=== PATIENT | male | born 1955 | race Caucasian/White ===

== ENCOUNTER 2017-03-07 11:01 | Observation (INO) ==
--- NOTE | 2017-03-07 11:25 | Emergency Department Note ---
Disposition Clinical Impression: Duodenitis, Gastric distention Abdominal pain Qualifiers: Abdominal location: generalized Qualified Code(s): R10.84 - Generalized abdominal pain Disposition: Admitted As Inpatient Condition: Fair Referrals: Anamika Gtz CNP [Primary Care Provider] - Forms: ED Satisfaction Letter Time of Disposition: 13:15 Nausea/Vomiting/Diarrhea HPI - General Chief complaint: ED Nausea/Vomiting/Diarrhea Stated complaint: vomiting Time Seen by Provider: 03/07/17 11:20 Source: patient, family Limitations: no limitations Nursing Notes Reviewed: Yes Vital Signs Reviewed: Yes - History of Present Illness HPI Narrative: 61-year-old had a couple days of nausea vomiting and abdominal pain. Patient's has had pancreatitis twice in the past and says it feels similar to that. Patient is status post appendectomy and cholecystectomy remotely. Patient's had multiple episodes of vomiting. He states he also has had some burning with urination. Denies any history of diverticular disease. Denies alcohol use. No history of gastroparesis. Pt Subjective Complaint: nausea, vomiting, abdominal pain Onset (ago): day(s) Description of emesis: food contents Associated Abdominal Pain: Yes If pain, Location of pain: diffuse, other (But states more so in the lower abdomen than the upper abdomen) Quality: cramping Consistency: constant Improves with: nothing Worsens with: nonthing Associated symptoms: Reports: dysuria. Denies: chest pain - Related Data Home Medications Medication Instructions Recorded Confirmed Aspirin Enteric Coated [Aspirin EC] 325 mg PO DAILY 05/20/15 12/27/15 Atorvastatin [Lipitor] 40 mg PO DAILY 05/20/15 12/27/15 Citalopram [CeleXA] 40 mg PO DAILY 05/20/15 12/27/15 Cyclobenzaprine [Flexeril] 10 mg PO TID 05/20/15 12/27/15 Gabapentin [Neurontin] 1,200 mg PO TID 05/20/15 12/27/15 Insulin Glargine [Lantus] 80 unit SQ BID 05/20/15 12/27/15 Lisinopril [Zestril] 20 mg PO BID 05/20/15 12/27/15 OxyCODONE/APAP 7.5/325 [Percocet 1 each PO TID 05/20/15 12/27/15 7.5/325 MG] metFORMIN [Glucophage] 1,000 mg PO BID 05/20/15 12/27/15 Meloxicam [Mobic] 15 mg PO DAILY 12/27/15 12/27/15 Metoprolol Succinate 100 mg PO DAILY 12/27/15 12/27/15 Previous Rx's Medication Instructions Recorded Insulin ASPART [NovoLOG] 10 unit SQ TIDWM #1 mls 12/29/15 Insulin Glargine [Lantus] 80 unit SQ BID #1 mls 12/29/15 Allergies Allergy/AdvReac Type Severity Reaction Status Date / Time Enoxaparin [From Lovenox] AdvReac Rash Verified 03/07/17 11:06 All systems ED: reviewed and negative except as stated. Gastrointestinal: Reports: abdominal pain, nausea, vomiting Past Medical History - Past Medical History Medical history: Reports: diabetes Surgical history: Reports: appendectomy, cholecystectomy Psychiatric history: Reports: no psych history - Social History Smoking Status: Never smoker Smokeless Tobacco Status: Yes Alcohol use: Reports: none Drug use: Reports: none Physical Exam - General Limitations: no limitations General appearance: alert, in no apparent distress - Head Head exam: atraumatic, normocephalic, normal inspection - Eye Eye exam: Present: normal appearance, PERRL, EOMI - ENT ENT exam: normal exam, normal oropharynx, mucous membranes moist - Neck Neck exam: Present: normal inspection, full ROM, trachea midline - Chest Chest inspection: Present: normal inspection, symmetric chest wall rise - Respiratory Respiratory exam: Present: normal lung sounds bilaterally - Cardiovascular Cardiovascular exam: Present: regular rate, normal rhythm, normal heart sounds - Abdominal Exam Abdominal exam: Present: soft, tenderness. Absent: guarding, rebound, pulsatile mass Abdominal tenderness: Present: diffuse - Extremities Exam Extremities exam: Present: normal inspection, full ROM. Absent: tenderness, pedal edema - Expanded Lower Extremity Exam Neurovascular/Tendon exam: Absent: motor deficit, sensory deficit, tendon deficit Gait: observed and normal - Back Exam Back exam: Present: normal inspection, full ROM. Absent: tenderness - Neurological Exam Neurological exam: Present: alert, oriented X3 - Psychiatric Psychiatric exam: Present: normal affect, normal mood - Skin Skin exam: Present: warm, dry, intact, normal color Course - Reevaluation(s) Reevaluation #1: 61-year-old diabetic who comes in with nausea vomiting and abdominal pain. Has had pancreatitis a couple times in the past and thought it was related to that. Workup shows a normal amylase and lipase however a CT scan does show inflammation around the duodenum likely related to duodenitis. In light of his normal amylase and lipase does not appear to be pancreatitis. Patient was given Zosyn and he does have significant distention of his stomach remnant hadn't put an NG down. Time: 13:14 - Consultations Consultation #1: Discussed with , admit. Time: 13:13 Vital Signs Temperature 97.4 F L 03/07/17 11:06 Pulse Rate 91 03/07/17 11:06 Respiratory Rate 20 03/07/17 11:06 Blood Pressure 158/94 03/07/17 11:06 O2 Sat by Pulse Oximetry 98 03/07/17 11:06 Temperature 97.4 F L 03/07/17 11:06 Pulse Rate 91 03/07/17 11:06 Respiratory Rate 20 03/07/17 11:06 Blood Pressure 158/94 03/07/17 11:06 O2 Sat by Pulse Oximetry 98 03/07/17 11:06 Oxygen Delivery Oxygen Delivery Room Air Nausea/Vomiting/Diarrhea - Lab Data Lab results reviewed: Yes I reviewed the patient's lab results. Result diagrams: 03/07/17 11:45 03/07/17 11:45 Lab Results 03/07/17 03/07/17 03/07/17 Range/Units 11:35 11:45 11:45 WBC 15.8 H (4.3-11.1) K/mcL RBC 5.09 (4.19-5.50) M/mcL Hgb 16.0 (12.9-16.9) g/dL Hct 46.4 (37.5-50.1) % MCV 91.2 (83.0-100.0) fL MCH 31.4 (28.0-33.3) pg MCHC 34.5 (31.6-35.5) g/dL RDW 12.9 (11.5-14.5) % Plt Count 334 (140-400) K/mcL MPV 9.7 (9.4-12.4) fL Immature Gran % 0.6 (0-4) % Seg Neutrophils % 87.9 % Lymphocytes % 7.7 % Monocytes % 3.5 % Eosinophils % 0.0 % Basophils % 0.3 % Neutrophils # 13.9 H (1.6-8.9) K/mcL Lymphocytes # 1.2 (0.6-4.6) K/mcL Monocytes # 0.6 (0.0-1.3) K/mcL Eosinophils # 0.0 (0.0-0.6) K/mcL Basophils # 0.1 (0.0-0.2) K/mcL Immature Plt Fraction 3.0 (1.1-6.1) % Sodium (136-145) mEq/L Potassium (3.5-4.5) mEq/L Chloride (98-109) mEq/L Carbon Dioxide (19-29) mEq/L BUN (8-26) mg/dL Creatinine (0.72-1.25) mg/dL Est GFR ( Amer) (> 60) Est GFR (Non-Af Amer) (> 60) BUN/Creatinine Ratio (6-26) Glucose (70-99) mg/dL Calculated Osmolality (280-300) Lactic Acid 2.5 H (0.5-2.2) mmol/L Calcium (8.6-10.8) mg/dL Total Bilirubin (0.2-1.2) mg/dL Direct Bilirubin (0.0-0.5) mg/dL Indirect Bilirubin (0.0-1.2) mg/dL AST (5-34) Units/L ALT (0-55) Units/L Alkaline Phosphatase (38-126) Units/L Serum Total Protein (6.0-8.3) g/dL Albumin (3.5-5.0) g/dL Globulin (2.4-3.5) g/dL Albumin/Globulin Ratio (1.1-2.2) Amylase (25-125) Units/L Lipase (8-78) Units/L Urine Color Yellow (Yellow) Urine Clarity Clear (Clear) Urine pH 5.5 (5.0-8.0) pH Units Ur Specific [place] > 1.030 H (1.010-1.025) Urine Protein Negative (Neg-Trace) mg/dL Urine Glucose (UA) >=1000 H (Normal) mg/dL Urine Ketones 40 H (Negative) mg/dL Urine Blood Negative (Negative) Urine Nitrite Negative (Negative) Urine Bilirubin Negative (Negative) Urine Urobilinogen Normal (Normal) mg/dL Ur Leukocyte Esterase Negative (Negative) Ur Culture Indicated? NO (NO) 03/07/17 Range/Units 11:45 WBC (4.3-11.1) K/mcL RBC (4.19-5.50) M/mcL Hgb (12.9-16.9) g/dL Hct (37.5-50.1) % MCV (83.0-100.0) fL MCH (28.0-33.3) pg MCHC (31.6-35.5) g/dL RDW (11.5-14.5) % Plt Count (140-400) K/mcL MPV (9.4-12.4) fL Immature Gran % (0-4) % Seg Neutrophils % % Lymphocytes % % Monocytes % % Eosinophils % % Basophils % % Neutrophils # (1.6-8.9) K/mcL Lymphocytes # (0.6-4.6) K/mcL Monocytes # (0.0-1.3) K/mcL Eosinophils # (0.0-0.6) K/mcL Basophils # (0.0-0.2) K/mcL Immature Plt Fraction (1.1-6.1) % Sodium 139 (136-145) mEq/L Potassium 4.7 H (3.5-4.5) mEq/L Chloride 97 L (98-109) mEq/L Carbon Dioxide 28 (19-29) mEq/L BUN 29 H (8-26) mg/dL Creatinine 1.09 (0.72-1.25) mg/dL Est GFR ( Amer) > 60 (> 60) Est GFR (Non-Af Amer) > 60 (> 60) BUN/Creatinine Ratio 27 H (6-26) Glucose 387 H (70-99) mg/dL Calculated Osmolality 310 H (280-300) Lactic Acid (0.5-2.2) mmol/L Calcium 10.2 (8.6-10.8) mg/dL Total Bilirubin 0.9 (0.2-1.2) mg/dL Direct Bilirubin 0.4 (0.0-0.5) mg/dL Indirect Bilirubin 0.5 (0.0-1.2) mg/dL AST 15 (5-34) Units/L ALT 19 (0-55) Units/L Alkaline Phosphatase 157 H (38-126) Units/L Serum Total Protein 7.9 (6.0-8.3) g/dL Albumin 4.1 (3.5-5.0) g/dL Globulin 3.8 H (2.4-3.5) g/dL Albumin/Globulin Ratio 1.1 (1.1-2.2) Amylase 27 (25-125) Units/L Lipase 30 (8-78) Units/L Urine Color (Yellow) Urine Clarity (Clear) Urine pH (5.0-8.0) pH Units Ur Specific [place] (1.010-1.025) Urine Protein (Neg-Trace) mg/dL Urine Glucose (UA) (Normal) mg/dL Urine Ketones (Negative) mg/dL Urine Blood (Negative) Urine Nitrite (Negative) Urine Bilirubin (Negative) Urine Urobilinogen (Normal) mg/dL Ur Leukocyte Esterase (Negative) Ur Culture Indicated? (NO) - Radiology Data Radiology results reviewed: Yes I reviewed the patient's radiology results. Abdomen/Pelvis CT 03/07/17 11:27 IMPRESSION: Inflammatory changes associated with the duodenum and head of the pancreas findings favored to represent a nonspecific infectious or inflammatory enteritis of the duodenum with associated inflammatory changes of the adjacent pancreas. Pancreatitis with reactive changes at the adjacent duodenum is considered less likely No definite perforation is noted. Study somewhat limited by lack of IV contrast There is significant distention of the stomach with possible delayed gastric emptying. Consider placement of a nasogastric tube for decompression particularly if the patient is at risk for aspiration D/ / Jordan Mayberry MD / Jordan Mayberry MD Interpreting Provider: Jordan Mayberry MD - EKG Data EKG attestation: Yes I reviewed and interpreted this EKG. EKG shows normal: sinus rhythm Rate: normal Rhythm: NSR, PVC's Interpretation: no acute changes
[2017-03-07] MEDS ORDERED: *HR* HYDROmorphone (PF) 1 MG/ML SYRINGE IVP ONE ×2 (11:26→12:59)
[2017-03-07] MEDS ORDERED: 0.9 % Sodium Chloride 1,000 ML IVC ONE (11:26)
[2017-03-07] MEDS ORDERED: Ondansetron 4 MG/2 ML VIAL IVP ONE (11:26)
[2017-03-07 11:49] LABS: Bilirubin,Urine Negative (Negative); Blood,Urine Negative (Negative); Clarity,Urine Clear (Clear); Color,Urine Yellow (Yellow); Glucose,Urine (UA) >=1000 mg/dL (Normal); Ketones,Urine 40 mg/dL (Negative); Leukocyte Esterase,Urine Negative (Negative); Nitrite,Urine Negative (Negative); PH,Urine 5.5 pH Units (5.0-8.0); Protein,Urine Negative (Neg-Trace); Specific Gravity,Urine > 1.030 (1.010-1.025); Urobilinogen,Urine Normal (Normal)
[2017-03-07 11:54] LABS: Basophils # 0.1 K/mcL (0.0-0.2); Basophils % 0.3 %; Hematocrit 46.4 % (37.5-50.1); Immature Granulocytes % 0.6 % (0-4); Lymphocytes # 1.2 K/mcL (0.6-4.6); Lymphocytes % 7.7 %; Mean Corpuscular HGB Conc 34.5 g/dL (31.6-35.5); Mean Corpuscular Hemoglobin 31.4 pg (28.0-33.3); Mean Corpuscular Volume 91.2 fL (83.0-100.0); Mean Platelet Volume 9.7 fL (9.4-12.4); Monocytes # 0.6 K/mcL (0.0-1.3); Monocytes % 3.5 %; Neutrophils # 13.9 K/mcL (1.6-8.9); Platelet Count 334 K/mcL (140-400); Red Blood Count 5.09 M/mcL (4.19-5.50); Red Cell Distribution Width 12.9 % (11.5-14.5); Segmented Neutrophils % 87.9 %
[2017-03-07 12:13] LABS: Alanine Aminotransferase 19 Units/L (0-55); Albumin 4.1 g/dL (3.5-5.0); Albumin/Globulin Ratio 1.1 (1.1-2.2); Alkaline Phosphatase 157 Units/L (38-126); Amylase 27 Units/L (25-125); Aspartate Amino Transferase 15 Units/L (5-34); BUN/Creatinine Ratio 27 (6-26); Bilirubin,Direct 0.4 mg/dL (0.0-0.5); Bilirubin,Indirect 0.5 mg/dL (0.0-1.2); Bilirubin,Total 0.9 mg/dL (0.2-1.2); Blood Urea Nitrogen 29 mg/dL (8-26); Calcium 10.2 mg/dL (8.6-10.8); Carbon Dioxide 28 mEq/L (19-29); Chloride 97 mEq/L (98-109); Globulin 3.8 g/dL (2.4-3.5); Glucose 387 mg/dL (70-99); Lipase 30 Units/L (8-78); Osmolality,Calculated 310 (280-300); Potassium 4.7 mEq/L (3.5-4.5); Sodium 139 mEq/L (136-145); Total Protein 7.9 g/dL (6.0-8.3); eGFR For African Americans > 60 (> 60); eGFR For Non-African Americans > 60 (> 60)
[2017-03-07] MEDS ORDERED: *HR* Promethazine 25 MG/ML VIAL IVP ONE (12:59)
[2017-03-07] MEDS ORDERED: Piperacillin/Tazobactam 3.375 GM in D5% in Water (Mini-Bag+) 100 ML IVPB ONE (13:02)
[2017-03-07] MEDS ORDERED: Pantoprazole 40 MG VIAL IVP ONE (13:16)
[2017-03-07] MEDS ORDERED: Naloxone 0.4 MG/ML INJ IVP PRN (15:14)
--- NOTE | 2017-03-07 15:20 | Internal Med History&Physical ---
Date of Encounter: 03/07/17 Time of Encounter: 15:20 Assessment and Plan (1) Abdominal pain Current visit: Yes Status: Acute Acute intractable abdominal pain. Mainly in the epigastric region. From duodenitis and acute gastroparesis. We will treat symptomatically. Keep nothing by mouth. NG tube to low intermittent suction. IV hydration. IV PPI. Pain control with intravenous narcotic agents. High risk for complications due to use of intravenous narcotic medications. DVT prophylaxis with subcutaneous heparin and SCDs Qualifiers: Abdominal location: epigastric Qualified Code(s): R10.13 - Epigastric pain (2) Duodenitis Current visit: Yes Status: Acute Will treat with IV PPI. If symptoms do not improve, will consult GI for possible upper GI endoscopy. (3) Diabetic gastroparesis Current visit: Yes Status: Acute Patient appears to be having an episode of acute gastro-paresis with associated duodenitis. Has not previously been diagnosed with it but patient does have history of diabetic neuropathy. Will treat with prokinetic agents. IV hydration. Treat underlying diabetes. (4) Hypertension Current visit: Yes Status: Chronic Blood pressure currently elevated. Likely from pain. Since patient is nothing by mouth, we will place him on intravenous hydralazine to control systolic blood pressure. Qualifiers: Hypertension type: essential hypertension Qualified Code(s): I10 - Essential (primary) hypertension (5) Obesity (BMI 30-39.9) Current visit: No Status: Chronic (6) Diabetes mellitus Current visit: Yes Status: Chronic Uncontrolled. Monitor blood sugars. A1c in January was 10%. Will place patient on Levemir twice a day and sliding scale insulin every 6 hours. For now patient will be nothing by mouth. 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 Camacho is a 61 year old male patient with a history of essential hypertension, type 2 diabetes mellitus on insulin who presented to the ER with complaints of intractable nausea and vomiting along with epigastric abdominal pain. Patient's symptoms began on 4 days back and have been progressively getting worse. He reports that the pain is 10 out of 10 in severity at its worst. It improved to 7 out of 10 after receiving pain medications in the ER. Has had a bowel movement this morning. Pain is nonradiating. He does have chronic back pain which seems to also worsened since he developed these acute symptoms. No hematemesis. No melena. Patient had similar kind of pain in the past when he developed pancreatitis but his pain was much less severe. No fever or chills. No cough or shortness of breath. Past Med Surg Social Fam HX - Past Medical History Attestation: Yes The following information was validated with the patient. Source: patient, old records reviewed Medical history: diabetes Psychiatric history: no psych history - Past Surgical History Surgical History: appendectomy, cholecystectomy - Social History Smoking Status: Never smoker Smokeless Tobacco Status: Yes Alcohol use: none Drug use: none - Family History Mother Living Status: Hx Family Cardiac Disorders: Yes Hx Family Endocrine Disorder: Yes (DM) Father Living Status: Hx Family Cardiac Disorders: Yes Hx Family Endocrine Disorder: Yes (DM) Internal Medicine - H&P: Meds Aspirin Enteric Coated [Aspirin EC] 325 mg PO DAILY 05/20/15 [History] Atorvastatin [Lipitor] 40 mg PO DAILY 05/20/15 [History] Citalopram [CeleXA] 40 mg PO DAILY 05/20/15 [History] Cyclobenzaprine [Flexeril] 10 mg PO TID 05/20/15 [History] Gabapentin [Neurontin] 1,200 mg PO TID 05/20/15 [History] Insulin Glargine [Lantus] 80 unit SQ BID 05/20/15 [History] Lisinopril [Zestril] 20 mg PO BID 05/20/15 [History] OxyCODONE/APAP 7.5/325 [Percocet 7.5/325 MG] 1 each PO TID 05/20/15 [History] Meloxicam [Mobic] 15 mg PO DAILY 12/27/15 [History] Metoprolol Succinate 100 mg PO DAILY 12/27/15 [History] Insulin ASPART [NovoLOG] 10 unit SQ TIDWM #1 mls 12/29/15 [Rx] Insulin Glargine [Lantus] 80 unit SQ BID #1 mls 12/29/15 [Rx] Insulin NPH Hum/Reg Insulin Hm [Novolin 70-30 100 Unit/ml Vial] 100 unit SQ BID 03/07/17 [History] Insulin Regular, Human [Novolin R] 0 - 35 unit IJ TID PRN 03/07/17 [History] 3 Allergy/AdvReac Type Severity Reaction Status Date / Time Enoxaparin [From Lovenox] AdvReac Rash Verified 03/07/17 15:04 All Systems PM: A 10-system review of systems was performed and is negative for pertinent findings except as documented above in the HPI. - Constitutional Constitutional: malaise, no chills, no fever(s), no night sweats - EENT Eyes: no change in vision, no discharge, no pain, no photophobia Ears: no ear discharge, no ear pain, no tinnitus Nose, mouth and throat: no dysphagia, no nasal discharge, no neck pain, no sore throat - Cardiovascular Cardiovascular ROS IM: no chest pain, no diaphoresis, no dyspnea, no lightheadedness, no palpitations, no syncope - Respiratory Respiratory: no cough, no dyspnea, no wheezing, no excessive phlegm production - Gastrointestinal Gastrointestinal: abdominal pain, nausea, vomiting, no diarrhea, no hematemesis , no hematochezia, no melena - Musculoskeletal Musculoskeletal ROS IM: no numbness, no tingling - Integumentary Integumentary IM: no rash, no unusual bruising - Neurological Neurological ROS: no confusion, no convulsions, no focal weakness, no numbness, no tingling, no tremor(s) - Hematologic/Lymphatic Hematologic/Lymphatic: no easy bruising - Constitutional Vitals: Temp Pulse Resp BP Pulse Ox 97.4 F L 72 17 163/82 100 03/07/17 11:06 03/07/17 14:36 03/07/17 14:36 03/07/17 14:36 03/07/17 14:36 General appearance: Present: cooperative, mild distress, A&O X 3, answers questions appropriately - Eye Eye exam: Present: EOMI, PERRL, conjuntiva pink, sclera anicteric - ENT ENT exam: Present: mucous membranes dry Additional comments: NG tube in place - Neck Neck exam general surgery: Present: supple, trachea midline. Absent: lymphadenopathy - Respiratory Respiratory exam: Present: CTAB. Absent: accessory muscle use, rales, rhonchi, wheezes - Cardiovascular Cardiovascular exam: Present: RRR, +S1, +S2. Absent: diastolic murmur, gallop, rubs, systolic murmur - GI/Abdominal GI/Abdominal exam: Present: distended, normal bowel sounds, soft, tenderness ( Epigastric), no peritoneal signs - Extremities Exam Extremities exam: Present: warm, radial pulses palpable and symmetrical. Absent : calf tenderness, cyanotic, pedal edema - Neurological Exam Neurological exam: Present: alert, oriented X3, no focal deficits, strengths equal and symetr throughout. Absent: facial droop, speech deficit - Skin Skin exam: Present: dry, intact Internal Med - H&P Results - Labs CBC & Chem 7: 03/07/17 11:45 03/07/17 11:45 - Impressions Impressions Abdomen/Pelvis CT 03/07/17 11:27 IMPRESSION: Inflammatory changes associated with the duodenum and head of the pancreas. Findings favored to represent a nonspecific infectious or inflammatory enteritis of the duodenum with associated inflammatory changes of the adjacent pancreas. Pancreatitis with reactive changes at the adjacent duodenum is considered less likely. No definite perforation is noted. Study is somewhat limited by the lack of IV contrast. There is significant distention of the stomach with possible delayed gastric emptying. Consider placement of a nasogastric tube for decompression particularly if the patient is at risk for aspiration. D/ / 03/07/2017 13:23:23 Jordan Mayberry MD / guillermina Interpreting Provider: Jordan Mayberry MD
[2017-03-07] MEDS ORDERED: Metoclopramide 10 MG/2 ML VIAL IVP PRN (15:21)
[2017-03-07] MEDS ORDERED: *HR* Dextrose 50 % in Water (Syg) 50 ML SYRINGE IVP PRN (15:22)
[2017-03-07] MEDS ORDERED: D5% in Water 1,000 ML IVC PRN (15:22)
[2017-03-07] MEDS ORDERED: Dextrose Gel 15 GM PO PRN ×2 (15:22)
[2017-03-07] MEDS ORDERED: Lidocaine Viscous Oral Soln 15 ML SOLUTION MM PRN (15:40)
[2017-03-07] MEDS: *HR* Heparin 5,000 UNIT/ML VIAL SQ SCH (16:44)
[2017-03-07] MEDS: 0.9 % Sodium Chloride 1,000 ML IVC SCH (16:44)
[2017-03-07] MEDS: *HR* Metoprolol 5 MG/5 ML VIAL IVP SCH ×2 (16:44→23:20)
[2017-03-07] MEDS: *HR* Morphine 2 MG/ML SYRINGE IVP PRN ×2 (17:52→21:56)
[2017-03-07] MEDS ORDERED: *HR* Metoprolol 5 MG/5 ML VIAL IVP SCH (18:00)
[2017-03-07] MEDS: Insulin LISPRO 300 UNITS/3 ML VIAL SQ SCH ×2 (18:05→23:20)
[2017-03-07] MEDS ORDERED: Ondansetron 4 MG/2 ML VIAL IVP PRN (20:32)
[2017-03-07] MEDS: Lisinopril 20 MG TABLET PO SCH (20:47)
[2017-03-07] MEDS: Gabapentin 400 MG CAPSULE PO SCH (20:47)
[2017-03-07] MEDS: *HR* OxyCODONE/APAP 7.5/325 TABLET PO SCH (20:47)
[2017-03-07] MEDS: Insulin DETEMIR 100 UNIT/ML X5UNITS SQ SCH (21:56)
[2017-03-08] MEDS: *HR* Morphine 2 MG/ML SYRINGE IVP PRN ×2 (03:09→09:23)
[2017-03-08] MEDS: 0.9 % Sodium Chloride 1,000 ML IVC SCH (03:09)
[2017-03-08 04:33] LABS: Basophils # 0.1 K/mcL (0.0-0.2); Basophils % 0.3 %; Hematocrit 42.3 % (37.5-50.1); Hemoglobin 14.6 g/dL (12.9-16.9); Immature Granulocytes % 0.6 % (0-4); Lymphocytes # 1.9 K/mcL (0.6-4.6); Lymphocytes % 11.5 %; Mean Corpuscular HGB Conc 34.5 g/dL (31.6-35.5); Mean Corpuscular Hemoglobin 31.5 pg (28.0-33.3); Mean Corpuscular Volume 91.2 fL (83.0-100.0); Mean Platelet Volume 9.8 fL (9.4-12.4); Monocytes # 1.4 K/mcL (0.0-1.3); Monocytes % 8.6 %; Platelet Count 306 K/mcL (140-400); Red Blood Count 4.64 M/mcL (4.19-5.50); Red Cell Distribution Width 13.1 % (11.5-14.5)
[2017-03-08 04:47] LABS: BUN/Creatinine Ratio 30 (6-26); Blood Urea Nitrogen 28 mg/dL (8-26); Calcium 9.7 mg/dL (8.6-10.8); Carbon Dioxide 29 mEq/L (19-29); Chloride 101 mEq/L (98-109); Glucose 264 mg/dL (70-99); Osmolality,Calculated 305 (280-300); Potassium 4.1 mEq/L (3.5-4.5); Sodium 140 mEq/L (136-145); eGFR For African Americans > 60 (> 60); eGFR For Non-African Americans > 60 (> 60)
[2017-03-08] MEDS: Insulin LISPRO 300 UNITS/3 ML VIAL SQ SCH ×2 (05:32→12:10)
[2017-03-08] MEDS: *HR* Metoprolol 5 MG/5 ML VIAL IVP SCH ×2 (05:32→12:12)
[2017-03-08] MEDS: *HR* Heparin 5,000 UNIT/ML VIAL SQ SCH (05:32)
[2017-03-08] MEDS: Insulin DETEMIR 100 UNIT/ML X5UNITS SQ SCH (08:48)
[2017-03-08] MEDS ORDERED: Metoprolol XL (24 HR) Succ 50 MG TAB.ER.24H PO SCH (09:00)
[2017-03-08] MEDS ORDERED: Pantoprazole 40 MG VIAL IVP SCH (09:00)
[2017-03-08] MEDS: *HR* OxyCODONE/APAP 7.5/325 TABLET PO SCH ×2 (09:25→15:09)
[2017-03-08] MEDS: Gabapentin 400 MG CAPSULE PO SCH ×2 (09:42→15:09)
[2017-03-08] MEDS: Lisinopril 20 MG TABLET PO SCH (09:42)
[2017-03-08 11:06] VITALS: BP 154/70
--- NOTE | 2017-03-08 14:44 | Electrocardiograph Report ---
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
--- NOTE | 2017-03-08 15:01 | Discharge Summary ---
Date of Encounter: 03/08/17 Time of Encounter: 14:55 - Discharge Diagnosis (1) Abdominal pain Priority: Primary Status: Acute Qualifiers: Abdominal location: epigastric Qualified Code(s): R10.13 - Epigastric pain (2) Duodenitis Priority: Secondary Status: Acute (3) Diabetic gastroparesis Priority: Secondary Status: Acute (4) Hypertension Priority: Secondary Status: Chronic Qualifiers: Hypertension type: essential hypertension Qualified Code(s): I10 - Essential (primary) hypertension (5) Obesity (BMI 30-39.9) Priority: Secondary Status: Chronic (6) Diabetes mellitus Priority: Secondary Status: Chronic Qualifiers: Diabetes mellitus type: type 2 Diabetes mellitus complication status: with neurologic complications Diabetes mellitus complication detail: with polyneuropathy Diabetes mellitus clinical rehabilitation liaison insulin use: with snf use Qualified Code(s): E11.42 - Type 2 diabetes mellitus with diabetic polyneuropathy; Z79.4 - skilled nursing (current) use of insulin; Z79.4 - skilled nursing ( current) use of insulin; 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 Omeprazole 20 mg PO DAILY #30 tablet. Home Medications: Atorvastatin [Lipitor] 40 mg PO DAILY 05/20/15 [History] Citalopram [CeleXA] 40 mg PO DAILY 05/20/15 [History] Cyclobenzaprine [Flexeril] 10 mg PO TID 05/20/15 [History] Gabapentin [Neurontin] 1,200 mg PO TID 05/20/15 [History] Insulin Glargine [Lantus] 80 unit SQ BID 05/20/15 [History] Lisinopril [Zestril] 20 mg PO BID 05/20/15 [History] OxyCODONE/APAP 7.5/325 [Percocet 7.5/325 MG] 1 each PO TID 05/20/15 [History] Metoprolol Succinate 100 mg PO DAILY 12/27/15 [History] Insulin ASPART [NovoLOG] 10 unit SQ TIDWM #1 mls 12/29/15 [Rx] Insulin Glargine [Lantus] 80 unit SQ BID #1 mls 12/29/15 [Rx] Insulin NPH Hum/Reg Insulin Hm [Novolin 70-30 100 Unit/ml Vial] 100 unit SQ BID 03/07/17 [History] Insulin Regular, Human [Novolin R] 0 - 35 unit IJ TID PRN 03/07/17 [History] Aspirin Enteric Coated [Aspirin EC] 81 mg PO DAILY #30 tablet. 03/08/17 [Rx] Metoclopramide [Reglan] 10 mg PO Q6HR PRN #30 tablet 03/08/17 [Rx] Omeprazole 20 mg PO DAILY #30 tablet. 03/08/17 [Rx] Allergies/Adverse Reactions: 3 Allergy/AdvReac Type Severity Reaction Status Date / Time Enoxaparin [From Lovenox] AdvReac Rash Verified 03/07/17 15:04 Date of admission: 03/07/17 13:22 Primary care physician: Anamika Gtz CNP Discharging clinician: Arin May Anticipated date of discharge: 03/08/17 - Patient Status Disposition: Home, Self-Care Condition: Good Functional capacity at discharge: independent ambulation Overall status at discharge: patient is progressing back to baseline - Discharge Instructions Instructions: Diabetes Mellitus Type 2 in Adults (DC) Follow Up With: Anamika Gtz CNP [Primary Care Provider] - (in 1 week) Caitie Plata CNP [Advanced Practice Nurse] - 03/15/17 1:45 pm - Diet and Activity Activity: increase activity as tolerated Diet: diabetic diet, low fat, low cholesterol, low salt diet, other (smal and frequent meals) Hospital course: Mr. Camacho is a 61 year old male patient with a history of diabetes mellitus type 2 presented to the ER with complaints of nausea and abdominal pain. CT scan done in the ER showed gastric distention and duodenitis. Patient underwent placement of NG tube and was then observed in the hospital for further management. Patient is very likely having an episode of acute diabetic gastroparesis. NG tube was connected to low intermittent suction and patient was treated with Reglan for nausea. His symptoms have since improved. He is no longer having abdominal distention and feels much better now. He is tolerating oral diet well. NG tube has now been discontinued. He is stable to be discharged home. He will be discharged on omeprazole and Reglan. - Time Spent with Patient Total time spent providing and/or coordinating discharge services: Greater than 30 minutes (35 min) - Constitutional Vitals: Temp Pulse Resp BP Pulse Ox 98.1 F 79 16 154/70 94 03/08/17 10:58 03/08/17 10:58 03/08/17 10:58 03/08/17 10:58 03/08/17 10:58 General appearance: Present: cooperative, A&O X 3, no acute distress, answers questions appropriately - Respiratory Respiratory exam: Present: CTAB. Absent: accessory muscle use, rales, rhonchi, wheezes - Cardiovascular Cardiovascular exam: Present: RRR, +S1, +S2. Absent: diastolic murmur, gallop, rubs, systolic murmur - GI/Abdominal GI/Abdominal exam: Present: normal bowel sounds, soft, no peritoneal signs. Absent: distended, tenderness - Extremities Exam Extremities exam: Present: warm, radial pulses palpable and symmetrical. Absent : calf tenderness, cyanotic, pedal edema - Neurological Exam Neurological exam: Present: alert, CN II-XII intact, oriented X3, no focal deficits. Absent: facial droop, speech deficit
== END 2017-03-08 15:43 | disposition home or self-care (01) ==
LOC: EMEROO 11:01 → 3ANU 11:01 → SUATTDRO 13:22 → 3ANU 13:35
PROVIDERS: ADMIT Internal Medicine; ATTEND Internal Medicine

== ENCOUNTER 2017-10-22 09:41 | Observation (INO) ==
[2017-10-22] MEDS: Nitroglycerin 0.4 MG TAB.SUBL SL ONE ×3 (10:01→10:11)
[2017-10-22] MEDS ORDERED: Aspirin 325 MG TABLET PO ONE (10:25)
--- NOTE | 2017-10-22 10:30 | Emergency Department Note ---
Disposition Clinical Impression: ACS (acute coronary syndrome) Disposition: Admitted As Inpatient General Adult HPI - General Chief complaint: ED Chest Pain Stated complaint: chest pain Time Seen by Provider: 10/22/17 09:46 Source: patient, family Limitations: no limitations - History of Present Illness HPI Narrative: 62M with PMHx HTN, dyslipidemia on statin, no previous [place] or CAD, 2x TIA, presents for chest pain of 1 week, worsening since yesterday. Chest pain is substernal and radiates towards left armpit, pressure-like in nature. CP started last week without any obvious inciting factors. However, it has worsened and become more constant since yesterday after he went to visit his brother across the street in regards to business. CP has not subsided since then and he decided to come to ED. He has never had this before. Patient takes 81mg ASA and Oxycodone 10mg BID for chronic pain. He reports that the oxycodone improved pain last night but CP returned this morning. Has not taken anything today for pain. Reports rest also improves pain, exertion makes it worse. + worsening fatigue, lightheadedness, diaphoresis, nausea. Also reports dizziness with changes in standing/sitting position. Denies SOB, cough, hemoptysis, abdominal pain, f/c/vomiting, diarrhea, recent illness, recent travel. Family history of 03/30 siblings with CAD and [place]. Heart score 5+, EKG NSR, 62M, TIA/HTN/dyslipidemia/family history/chronic smoker (8+ years). Pt Subjective Complaint: chest pain Pain Scale: 4 - Related Data Home Medications Medication Instructions Recorded Confirmed Atorvastatin [Lipitor] 40 mg PO DAILY 05/20/15 10/22/17 Citalopram [CeleXA] 40 mg PO DAILY 05/20/15 10/22/17 Cyclobenzaprine [Flexeril] 10 mg PO TID 05/20/15 10/22/17 Gabapentin [Neurontin] 1,200 mg PO TID 05/20/15 10/22/17 Lisinopril [Zestril] 20 mg PO BID 05/20/15 10/22/17 Insulin NPH Hum/Reg Insulin Hm 100 unit SQ BID 03/07/17 10/22/17 [Novolin 70-30 100 Unit/ml Vial] Insulin Regular, Human [Novolin R] 0 - 35 unit IJ TID PRN 10/22/17 06/08/18 Metoprolol Succinate [Toprol Xl] 100 mg PO DAILY 10/22/17 10/22/17 Oxycodone HCl/Acetaminophen 1 tab PO Q4H PRN 10/22/17 10/22/17 [Percocet 10-325 mg Tablet] Previous Rx's Medication Instructions Recorded Aspirin Enteric Coated [Aspirin EC] 81 mg PO DAILY #30 tablet. 03/08/17 Metoclopramide [Reglan] 10 mg PO Q6HR PRN #30 tablet 03/08/17 Allergies Allergy/AdvReac Type Severity Reaction Status Date / Time Enoxaparin [From Lovenox] AdvReac Rash Verified 03/07/17 15:04 Review of Systems: As Per HPI Past Medical History - Past Medical History Medical history: Reports: cancer, diabetes, hyperlipidemia, hypertension, TIA Surgical history: Reports: appendectomy, cholecystectomy Psychiatric history: Reports: anxiety - Social History Smoking Status: Never smoker Smokeless Tobacco Status: Yes Alcohol use: Reports: none Drug use: Reports: none Physical Exam - General Limitations: no limitations General appearance: alert, in no apparent distress - Head Head exam: atraumatic, normocephalic, normal inspection - Eye Eye exam: Present: normal appearance, EOMI - Expanded Eye Exam Pupils: Left: reactive - ENT ENT exam: normal exam, normal oropharynx, mucous membranes moist - Expanded ENT Exam External ear exam: Present: normal external inspection Mouth exam: Present: normal external inspection Teeth exam: Present: normal inspection Throat exam: Present: normal inspection - Neck Neck exam: Present: normal inspection, full ROM, trachea midline - Chest Chest inspection: Present: normal inspection, symmetric chest wall rise. Absent : rash - Respiratory Respiratory exam: Present: normal lung sounds bilaterally - Cardiovascular Cardiovascular exam: Present: regular rate, normal rhythm, normal heart sounds, +S1, +S2 - Abdominal Exam Abdominal exam: Present: soft, Non-Tender. Absent: tenderness, distention, guarding, rebound, rigidity - Extremities Exam Extremities exam: Present: normal inspection, full ROM. Absent: tenderness, pedal edema - Expanded Upper Extremity Exam Shoulder exam: Present: normal inspection, full ROM Arm exam: Present: normal inspection, full ROM Elbow exam: Present: normal inspection, full ROM Forearm/Wrist exam: Present: normal inspection, full ROM Hand exam: Present: normal inspection, full ROM Vascular exam: Normal: capillary refill, radial pulse - Expanded Lower Extremity Exam Hip/Pelvis exam: Present: normal inspection, full ROM Upper leg exam: Present: normal inspection, full ROM Knee exam: Present: normal inspection, full ROM Lower leg exam: Present: full ROM, swelling. Absent: Homans' sign Ankle exam: Present: normal inspection, full ROM Foot/toe exam: Present: normal inspection, full ROM Neurovascular/Tendon exam: Absent: motor deficit, sensory deficit, tendon deficit - Back Exam Back exam: Present: normal inspection, full ROM. Absent: tenderness - Neurological Exam Neurological exam: Present: alert, oriented X3 - Expanded Neurological Exam Patient oriented to: Present: person, place, time Coma Scale Eye Opening: Spontaneous Coma Scale Motor Response: Obeys Commands Coma Scale Verbal Response: Oriented Coma Scale Total: 15 - Psychiatric Psychiatric exam: Present: normal affect, normal mood - Skin Skin exam: Present: warm, dry, intact, normal color, diaphoresis Course Course Narrative: Patient with typical chest pain with heart score 5+. Give ASA 325mg, nitroglycerin. Pending troponin, CXR, CBC, BMP, troponin Will admit for chest pain r/o ACS. Patient also has worsening dizziness, near-syncope when he went to get his CXR. Will check D-dimer. - Reevaluation(s) Reevaluation #1: Patient continues to have worsening headache. Could be due to Nitroglycerin and/ or orthostatic hypotension. Patient's headache improves with rest. CXR No acute cardiopulmonary disease. Time: 11:00 Reevaluation #2: Troponin negative x 1. D-dimer normal. Pending hospitalist admission for CP r/o ACS. Vital Signs Temperature 98.9 F 10/22/17 09:46 Pulse Rate 87 10/22/17 09:46 Respiratory Rate 18 10/22/17 09:46 Blood Pressure 131/83 10/22/17 09:46 O2 Sat by Pulse Oximetry 93 10/22/17 09:46 Temperature 98.9 F 10/22/17 09:46 Pulse Rate 87 10/22/17 09:46 Respiratory Rate 18 10/22/17 09:46 Blood Pressure 127/82 10/22/17 10:44 O2 Sat by Pulse Oximetry 94 10/22/17 10:39 Oxygen Delivery Oxygen Delivery Room Air Medical Decision Making - Lab Data Result diagrams: 10/22/17 09:55 10/22/17 09:55 Lab Results 10/22/17 10/22/17 10/22/17 Range/Units 09:55 09:55 09:55 WBC 7.9 (4.3-11.1) K/mcL RBC 4.97 (4.19-5.50) M/mcL Hgb 16.0 (12.9-16.9) g/dL Hct 44.3 (37.5-50.1) % MCV 89.1 (83.0-100.0) fL MCH 32.2 (28.0-33.3) pg MCHC 36.1 H (31.6-35.5) g/dL RDW 13.2 (11.5-14.5) % Plt Count 268 (140-400) K/mcL MPV 10.1 (9.4-12.4) fL Immature Gran % 0.8 (0-4) % Seg Neutrophils % 54.2 % Lymphocytes % 33.0 % Monocytes % 7.1 % Eosinophils % 3.1 % Basophils % 1.8 % Neutrophils # 4.3 (1.6-8.9) K/mcL Lymphocytes # 2.6 (0.6-4.6) K/mcL Monocytes # 0.6 (0.0-1.3) K/mcL Eosinophils # 0.2 (0.0-0.6) K/mcL Basophils # 0.1 (0.0-0.2) K/mcL D-Dimer 400 (0-500) ng/mLFEU Sodium 136 (136-145) mEq/L Potassium 4.6 (3.5-5.1) mEq/L Chloride 100 (98-107) mEq/L Carbon Dioxide 26 (23-29) mEq/L BUN 21 (8-23) mg/dL Creatinine 1.00 (0.70-1.30) mg/dL Est GFR ( Amer) > 60 (> 60) Est GFR (Non-Af Amer) > 60 (> 60) BUN/Creatinine Ratio 21 (6-26) Glucose 390 H (70-105) mg/dL Calculated Osmolality 301 H (280-300) Calcium 9.6 (8.6-10.3) mg/dL Troponin I < 0.03 (< 0.04) ng/mL - Radiology Data No acute cardiopulmonary disease on CXR - EKG Data EKG #1 EKG shows normal: sinus rhythm Rate: normal Rhythm: NSR, PVC's [place]/QRS: normal EKG #2 EKG results narrative: Patient has worsening diaphoresis. Troponin negative x1. Repeat EKG negative. EKG shows normal: sinus rhythm Rate: normal Rhythm: NSR
[2017-10-22 10:41] LABS: Basophils # 0.1 K/mcL (0.0-0.2); Basophils % 1.8 %; Eosinophils # 0.2 K/mcL (0.0-0.6); Eosinophils % 3.1 %; Hematocrit 44.3 % (37.5-50.1); Immature Granulocytes % 0.8 % (0-4); Lymphocytes # 2.6 K/mcL (0.6-4.6); Mean Corpuscular HGB Conc 36.1 g/dL (31.6-35.5); Mean Corpuscular Hemoglobin 32.2 pg (28.0-33.3); Mean Corpuscular Volume 89.1 fL (83.0-100.0); Mean Platelet Volume 10.1 fL (9.4-12.4); Monocytes # 0.6 K/mcL (0.0-1.3); Monocytes % 7.1 %; Neutrophils # 4.3 K/mcL (1.6-8.9); Platelet Count 268 K/mcL (140-400); Red Blood Count 4.97 M/mcL (4.19-5.50); Red Cell Distribution Width 13.2 % (11.5-14.5); Segmented Neutrophils % 54.2 %
--- NOTE | 2017-10-22 10:47 | Emergency Department Note ---
Disposition Clinical Impression: ACS (acute coronary syndrome) Disposition: Admitted As Inpatient Referrals: Anamika Gtz CNP [Primary Care Provider] - Forms: ED Satisfaction Letter General Adult HPI - General Chief complaint: ED Chest Pain Stated complaint: chest pain Time Seen by Provider: 10/22/17 09:46 Source: patient, family Limitations: no limitations - History of Present Illness Pain Scale: 4 - Related Data Home Medications Medication Instructions Recorded Confirmed Atorvastatin [Lipitor] 40 mg PO DAILY 05/20/15 03/07/17 Citalopram [CeleXA] 40 mg PO DAILY 05/20/15 03/07/17 Cyclobenzaprine [Flexeril] 10 mg PO TID 05/20/15 03/07/17 Gabapentin [Neurontin] 1,200 mg PO TID 05/20/15 03/07/17 Insulin Glargine [Lantus] 80 unit SQ BID 05/20/15 12/27/15 Lisinopril [Zestril] 20 mg PO BID 05/20/15 03/07/17 OxyCODONE/APAP 7.5/325 [Percocet 1 each PO TID 05/20/15 03/07/17 7.5/325 MG] Metoprolol Succinate 100 mg PO DAILY 12/27/15 03/07/17 Insulin NPH Hum/Reg Insulin Hm 100 unit SQ BID 03/07/17 03/07/17 [Novolin 70-30 100 Unit/ml Vial] Insulin Regular, Human [Novolin R] 0 - 35 unit IJ TID PRN 03/07/17 03/07/17 Previous Rx's Medication Instructions Recorded Insulin ASPART [NovoLOG] 10 unit SQ TIDWM #1 mls 12/29/15 Insulin Glargine [Lantus] 80 unit SQ BID #1 mls 12/29/15 Aspirin Enteric Coated [Aspirin EC] 81 mg PO DAILY #30 tablet. 03/08/17 Metoclopramide [Reglan] 10 mg PO Q6HR PRN #30 tablet 03/08/17 Omeprazole 20 mg PO DAILY #30 tablet. 03/08/17 Allergies Allergy/AdvReac Type Severity Reaction Status Date / Time Enoxaparin [From Lovenox] AdvReac Rash Verified 03/07/17 15:04 Past Medical History - Past Medical History Medical history: Reports: cancer, diabetes, hyperlipidemia, hypertension, TIA Surgical history: Reports: appendectomy, cholecystectomy Psychiatric history: Reports: anxiety - Social History Smoking Status: Never smoker Smokeless Tobacco Status: Yes Alcohol use: Reports: none Drug use: Reports: none Physical Exam - General Limitations: no limitations General appearance: alert, in no apparent distress Course - Reevaluation(s) Reevaluation #1: Attestation note I did independently examine and verified the physical examination findings evaluation workup and disposition of this patient. We had independent face-to- face examination and discussion. The patient was seen with the emergency medicine resident Dr. Dereje White I examined this patient and my medical decision-making was reviewed with the Resident Physician/DIRECTOR ENERGY/PA. I agree with the documented findings, disposition and treatment plan as described except to the extent set forth below. Briefly: 62-year-old male multiple risk factors, heart score 5 moderate risk patient will be admitted. No known prior coronary artery disease stress test 8 years ago which was negative. Over the past week chest pain and pressure are came and went constant since yesterday with extreme fatigue radiation to left arm and neck and some mild shortness of breath. Patient has trace pedal edema EKG shows a PVC but no acute ischemic changes when compared to a prior EKG. Patient will be getting aspirin nitroglycerin getting an oxycodone since he is on that chronically and missed his a.m. dose patient will be admitted, working differential is acute coronary syndrome. Providing 40 minutes critical care service for this patient. Admission disposition pending. Of note patient does have "dizziness" which the patient feels he might pass out after he stood up to get his chest x-ray. Patient will get a d-dimer. Time: 10:34 Vital Signs Temperature 98.9 F 10/22/17 09:46 Pulse Rate 87 10/22/17 09:46 Respiratory Rate 18 10/22/17 09:46 Blood Pressure 131/83 10/22/17 09:46 O2 Sat by Pulse Oximetry 93 10/22/17 09:46 Temperature 98.9 F 10/22/17 09:46 Pulse Rate 87 10/22/17 09:46 Respiratory Rate 18 10/22/17 09:46 Blood Pressure 131/83 10/22/17 09:46 O2 Sat by Pulse Oximetry 93 10/22/17 09:46 Oxygen Delivery Oxygen Delivery Room Air
[2017-10-22] MEDS ORDERED: *HR* OxyCODONE Immed Rel 5 MG TABLET PO ONE (10:49)
[2017-10-22 11:06] LABS: Troponin I < 0.03 ng/mL (< 0.04)
[2017-10-22 11:09] LABS: BUN/Creatinine Ratio 21 (6-26); Blood Urea Nitrogen 21 mg/dL (8-23); Calcium 9.6 mg/dL (8.6-10.3); Carbon Dioxide 26 mEq/L (23-29); Chloride 100 mEq/L (98-107); Glucose 390 mg/dL (70-105); Osmolality,Calculated 301 (280-300); Potassium 4.6 mEq/L (3.5-5.1); Sodium 136 mEq/L (136-145); eGFR For African Americans > 60 (> 60); eGFR For Non-African Americans > 60 (> 60)
[2017-10-22] MEDS ORDERED: Ondansetron 4 MG/2 ML VIAL IVP PRN (12:00)
[2017-10-22] MEDS ORDERED: Naloxone 0.4 MG/ML INJ IVP PRN (12:00)
[2017-10-22] MEDS ORDERED: *HR* Promethazine 25 MG/ML VIAL IVP PRN (12:00)
[2017-10-22] MEDS ORDERED: Acetaminophen 325 MG TABLET PO PRN (12:00)
[2017-10-22] MEDS ORDERED: *HR* Dextrose 50 % in Water (Syg) 50 ML SYRINGE IVP PRN (12:04)
[2017-10-22] MEDS ORDERED: D5% in Water 1,000 ML IVC PRN (12:04)
[2017-10-22] MEDS ORDERED: Dextrose Gel 15 GM/37.5 ML TUBE PO PRN ×2 (12:04)
[2017-10-22] MEDS ORDERED: Nitroglycerin 0.4 MG TAB.SUBL SL PRN (12:05)
--- NOTE | 2017-10-22 13:32 | Internal Med History&Physical ---
Date of Encounter: 10/22/17 Time of Encounter: 11:45 Internal Medicine - H&P: HPI Chief complaint: Chest pain Admitted From: Emergency Dept Plans for Post Hospital Care: Home History of present illness: Mr. Camacho is a 62 year old male with a known past medical history of hypertension, hyperlipidemia, TIA X2, diabetes type II and depression patient who presented to emergency room complaining about left chest wall pain since yesterday. Patient did mention that has been having chest pain since yesterday located at left chest wall, radiating to his left shoulder, feel more like someone sitting on a chest, also featuring lightheadedness, lethargic and weak. His chest pain improved now he felt only 2 out of 10 in severity. He denied of any cardiac cath in the past however he had normal stress test done a couple of years ago. Patient did mention has a significant family history of [place] all his siblings had heart attack in their early age in 50s. Past Med Surg Social Fam HX - Past Medical History Medical history: cancer, diabetes, hyperlipidemia, hypertension, TIA Additional medical history: see attached records Psychiatric history: anxiety - Past Surgical History Surgical History: appendectomy, cholecystectomy Additional surgical history: Back surgery 4 disc fused together, B/L knee replacements, Right hip replacement, bones fused in right foot, Right rotator cuff surgery, surgery on right forearm to repair muscles and ligaments. - Social History Smoking Status: Never smoker Smokeless Tobacco Status: Yes Alcohol use: none Drug use: none - Family History Mother Living Status: Hx Family Cardiac Disorders: Yes Hx Family Endocrine Disorder: Yes (DM) Father Living Status: Hx Family Cardiac Disorders: Yes Hx Family Endocrine Disorder: Yes (DM) Internal Medicine - H&P: Meds Atorvastatin [Lipitor] 40 mg PO DAILY 05/20/15 [History] Citalopram [CeleXA] 40 mg PO DAILY 05/20/15 [History] Cyclobenzaprine [Flexeril] 10 mg PO TID 05/20/15 [History] Gabapentin [Neurontin] 1,200 mg PO TID 05/20/15 [History] Lisinopril [Zestril] 20 mg PO BID 05/20/15 [History] Insulin NPH Hum/Reg Insulin Hm [Novolin 70-30 100 Unit/ml Vial] 100 unit SQ BID 03/07/17 [History] Insulin Regular, Human [Novolin R] 0 - 35 unit IJ TID PRN 03/07/17 [History] Aspirin Enteric Coated [Aspirin EC] 81 mg PO DAILY #30 tablet. 03/08/17 [Rx] Metoclopramide [Reglan] 10 mg PO Q6HR PRN #30 tablet 03/08/17 [Rx] Metoprolol Succinate [Toprol Xl] 100 mg PO DAILY 10/22/17 [History] Oxycodone HCl/Acetaminophen [Percocet 10-325 mg Tablet] 1 tab PO Q4H PRN [History] 3 Allergy/AdvReac Type Severity Reaction Status Date / Time Enoxaparin [From Lovenox] AdvReac Rash Verified 03/07/17 15:04 All Systems PM: A 10-system review of systems was performed and is negative for pertinent findings except as documented above in the HPI. Review of systems: All the systems are reviewed everything is benign except the systems and symptoms I mentioned in the history of present illness - Constitutional Vitals: Temp Pulse Resp BP Pulse Ox 98.9 F 87 14 140/91 94 10/22/17 09:46 10/22/17 09:46 10/22/17 13:04 10/22/17 13:04 10/22/17 10:39 General appearance: Present: A&O X 3, no acute distress, answers questions appropriately - Head Head exam: Present: atraumatic, normal inspection - Neck Neck exam general surgery: Present: supple - Respiratory Respiratory exam: Present: decreased breath sounds. Absent: rales, respiratory distress, rhonchi, wheezes - Cardiovascular Cardiovascular exam: Present: RRR, +S1, +S2. Absent: tachycardia - GI/Abdominal GI/Abdominal exam: Present: normal bowel sounds, soft. Absent: rebound, rigid, tenderness - Extremities Exam Extremities exam: Absent: calf tenderness, pedal edema, tenderness - Back Exam Back exam: Absent: CVA tenderness (L), CVA tenderness (R) - Neurological Exam Neurological exam: Present: alert, oriented X3 - Psychiatric Psychiatric exam: Present: normal affect, normal mood - Skin Skin exam: Absent: rash Internal Med - H&P Results - Labs CBC & Chem 7: 10/22/17 09:55 10/22/17 09:55 - Assessment and plan (1) Chest pain Current Visit: No Status: Acute Assessment and plan: Will admit the pt into Tele for observation Will place pt on cardiac cath tech check serial troponin so far negative troponin EKG reviewed showed normal sinus rhythm no acute ST, T changes and no acute ischemic changes noticed continue pt on ASA, and Nitro as needed for pain Will check FLP in AM Will get pharmacological stress test in AM since pt is high risk for ACS Qualifiers: Chest pain type: precordial chest pain Qualified Code(s): R07.2 - Precordial pain (2) Diabetes mellitus Current Visit: No Status: Chronic Assessment and plan: Seems to be uncontrolled diabetes type II he does take Mixed insulin at home placed him on insulin sliding scale along with pre-meal insulin we will check hemoglobin A-1 C Qualifiers: Diabetes mellitus type: type 2 Diabetes mellitus senior care insulin use: with senior care use Diabetes mellitus complication status: with neurologic complications Diabetes mellitus complication detail: with polyneuropathy Qualified Code(s): E11.42 - Type 2 diabetes mellitus with diabetic polyneuropathy; Z79.4 - group home (current) use of insulin; Z79.4 - emt intermediate ( current) use of insulin; Z79.4 - group home (current) use of insulin; Z79.4 - group home (current) use of insulin (3) Hyperlipemia Current Visit: No Status: Chronic Assessment and plan: Check FLP in AM on Statin Qualifiers: Hyperlipidemia type: mixed hyperlipidemia Qualified Code(s): E78.2 - Mixed hyperlipidemia (4) Hypertension Current Visit: No Status: Chronic Assessment and plan: Well controlled with home medications resumed all home medications Qualifiers: Hypertension type: essential hypertension Qualified Code(s): I10 - Essential (primary) hypertension (5) Obesity (BMI 30-39.9) Current Visit: No Status: Chronic Assessment and plan: Counseled to lose weight - Time Spent With Patient Total time spent is greater than 50% in coordination of care (as documented) at patient's floor/unit and/or counseling patient:
[2017-10-22] MEDS: Gabapentin 400 MG CAPSULE PO SCH ×2 (14:48→21:39)
[2017-10-22] MEDS: Insulin LISPRO 300 UNITS/3 ML VIAL SQ SCH ×4 (14:48→21:43)
[2017-10-22] MEDS ORDERED: Insulin Regular, Human 100 UNIT/ML SQ SCH (15:00)
[2017-10-22 17:01] LABS: Estimated Average Glucose 258 mg/dl; Hemoglobin A1C 10.6 %
--- NOTE | 2017-10-22 18:06 | Electrocardiograph Report ---
[place] [id number] Test Date: 2017-10-22 Pat Name: Sam Camacho Department: 104 Room: 2N4 Gender: M Principal Accounts Clerk: : 1955 Requested By: Charles Rubio Order Number: [id number] Reading MD: Geoff Austin Measurements Intervals [place] Rate: 90 P: 43 [place]: 192 QRS: -14 QRSD: 123 T: 62 QT: 373 QTc: 421 Interpretive Statements SINUS RHYTHM WITH OCCASIONAL VENTRICULAR PREMATURE COMPLEXES BASELINE ARTIFACT Electronically Signed On 10-22-2017 18:05:10 EDT by Geoff Austin
--- NOTE | 2017-10-22 18:13 | Electrocardiograph Report ---
[place] [id number] Test Date: 2017-10-22 Pat Name: Sam Camacho Department: 104 Room: 2N4 Gender: M Safety Advisor: : 1955 Requested By: Dereje White Order Number: [id number] Reading MD: Geoff Austin Measurements Intervals [place] Rate: 86 P: 47 [place]: 204 QRS: -24 QRSD: 124 T: 62 QT: 365 QTc: 409 Interpretive Statements SINUS RHYTHM Poor R wave progression Electronically Signed On 10-22-2017 18:11:50 EDT by Geoff Austin
[2017-10-22] MEDS: Lisinopril 20 MG TABLET PO SCH (21:39)
[2017-10-22] MEDS: *HR* HYDROcodone/Acet 5/325 mg TABLET PO PRN (21:42)
[2017-10-23] MEDS: *HR* OxyCODONE Immed Rel 5 MG TABLET PO PRN ×2 (00:37→10:45)
[2017-10-23 06:02] LABS: Chol/HDL Ratio 5.3 (0-4.9); Cholesterol 137 mg/dL (< 200); HDL Cholesterol 26 mg/dL (40-59); Triglycerides 498 mg/dL (< 150)
[2017-10-23] MEDS ORDERED: Regadenoson 0.4 MG/5 ML SYRINGE IVP ONE (06:16)
--- NOTE | 2017-10-23 10:04 | Internal Med Progress Note ---
<Regina Virk - Last Filed: 10/23/17 09:59> Date of Encounter: 10/23/17 Time of Encounter: 09:59 - Assessment and plan (1) Chest pain Current Visit: Yes Status: Acute Assessment and plan: pt on potline monitor serial troponin negative EKG reviewed showed normal sinus rhythm no acute ST, T changes and no acute ischemic changes noticed continue pt on ASA, and Nitro as needed for pain pharmacological stress test pending Qualifiers: Chest pain type: precordial chest pain Qualified Code(s): R07.2 - Precordial pain (2) Hyperlipemia Current Visit: Yes Status: Chronic Assessment and plan: on Statin Qualifiers: Hyperlipidemia type: mixed hyperlipidemia Qualified Code(s): E78.2 - Mixed hyperlipidemia (3) Hypertension Current Visit: Yes Status: Chronic Assessment and plan: Well controlled with home medications resumed all home medications Qualifiers: Hypertension type: essential hypertension Qualified Code(s): I10 - Essential (primary) hypertension (4) Obesity (BMI 30-39.9) Current Visit: Yes Status: Chronic Assessment and plan: Counseled to lose weight (5) Diabetes mellitus Current Visit: Yes Status: Chronic Assessment and plan: Seems to be uncontrolled diabetes type II he does take Mixed insulin at home placed him on insulin sliding scale along with pre-meal insulin we will check hemoglobin A-1 C Qualifiers: Diabetes mellitus type: type 2 Diabetes mellitus terminal make up operator insulin use: with jail use Diabetes mellitus complication status: with neurologic complications Diabetes mellitus complication detail: with polyneuropathy Qualified Code(s): E11.42 - Type 2 diabetes mellitus with diabetic polyneuropathy; Z79.4 - residential (current) use of insulin; Z79.4 - terminal make up operator ( current) use of insulin; Z79.4 - terminal make up operator (current) use of insulin; Z79.4 - residential (current) use of insulin (6) DVT prophylaxis Current Visit: Yes Status: Acute Assessment and plan: SQ heparin - Time Spent With Patient Total time spent is greater than 50% in coordination of care (as documented) at patient's floor/unit and/or counseling patient: - Subjective Interval history: Patient states he is doing well today. Complains of minimal left arm pain. Denies chest pain, pressure or palpitations. Nothing by mouth at this time due to stress test today. Due to patient's body habitus most likely two day stress will be needed. - Constitutional Vitals: Temp Pulse Resp BP Pulse Ox 97.8 F 73 18 143/70 99 10/23/17 07:05 10/23/17 07:05 10/23/17 07:05 10/23/17 07:05 10/23/17 07:05 General appearance: Present: A&O X 3, no acute distress, answers questions appropriately - Head Head exam: Present: atraumatic, normocephalic - Respiratory Respiratory exam: Present: CTAB. Absent: accessory muscle use, rales, rhonchi, wheezes - Cardiovascular Cardiovascular exam: Present: RRR, +S1, +S2. Absent: gallop, rubs - GI/Abdominal GI/Abdominal exam: Present: normal bowel sounds, soft, no peritoneal signs. Absent: distended, tenderness - Neurological Exam Neurological exam: Present: alert, oriented X3, no focal deficits Internal Medicine: Result - Labs CBC & Chem 7: 10/22/17 09:55 10/22/17 09:55 Labs: Cardiac Enzymes 10/22/17 10/22/17 Range/Units 16:03 22:05 Troponin I < 0.03 < 0.03 (< 0.04) ng/mL - ABG Interpretation ABG results: PT/INR, D-dimer D-Dimer 400 ng/mLFEU (0-500) 10/22/17 09:55 - VTE Documentation of Mechanical Device: Graduated compression elastic hosiery Consult Discharge Plan - Plan Referrals: Anamika Gtz, SHOT TUBE MACHINE TENDER [Primary Care Provider] - <Lex White - Last Filed: 10/23/17 12:09> Date of Encounter: 10/23/17 - Time Spent With Patient Total time spent is greater than 50% in coordination of care (as documented) at patient's floor/unit and/or counseling patient: - Constitutional Vitals: Temp Pulse Resp BP Pulse Ox 97.5 F L 79 16 148/78 97 10/23/17 11:39 10/23/17 11:39 10/23/17 11:39 10/23/17 11:39 10/23/17 11:39 Internal Medicine: Result - Labs CBC & Chem 7: 10/22/17 09:55 10/22/17 09:55 Labs: Cardiac Enzymes 10/22/17 10/22/17 Range/Units 16:03 22:05 Troponin I < 0.03 < 0.03 (< 0.04) ng/mL - ABG Interpretation ABG results: PT/INR, D-dimer D-Dimer 400 ng/mLFEU (0-500) 10/22/17 09:55 - Attending Attestation I saw and examined this patient independently, and my medical decision making was reviewed with the Resident Physician on 2017. I agree with the documented findings, assessment and treatment plan as described in the progress note . Patient was taking 100 units of NPH twice a day at home will start detemir 50 units twice a day, check TSH.
[2017-10-23] MEDS: Metoprolol XL (24 HR) Succ 50 MG TAB.ER.24H PO SCH (10:44)
[2017-10-23] MEDS: Gabapentin 400 MG CAPSULE PO SCH ×3 (10:44→21:43)
[2017-10-23] MEDS: Aspirin Enteric Coated 81 MG Tablet PO SCH (10:44)
[2017-10-23] MEDS: Lisinopril 20 MG TABLET PO SCH ×2 (10:44→21:43)
[2017-10-23] MEDS: Insulin LISPRO 300 UNITS/3 ML VIAL SQ SCH ×7 (10:45→21:44)
[2017-10-23] MEDS: Insulin DETEMIR 100 UNIT/ML X5UNITS SQ SCH ×2 (13:40→21:54)
[2017-10-23] MEDS: *HR* Heparin 5,000 UNIT/ML VIAL SQ SCH ×2 (14:59→21:43)
[2017-10-23] MEDS: Nicotine 21 MG PATCH.TD24 TD SCH (17:17)
[2017-10-23] MEDS: *HR* HYDROcodone/Acet 5/325 mg TABLET PO PRN (22:15)
[2017-10-24] MEDS: *HR* Heparin 5,000 UNIT/ML VIAL SQ SCH ×3 (06:11→22:30)
[2017-10-24 07:36] LABS: Basophils # 0.1 K/mcL (0.0-0.2); Basophils % 1.2 %; Eosinophils # 0.2 K/mcL (0.0-0.6); Eosinophils % 3.4 %; Hematocrit 43.9 % (37.5-50.1); Hemoglobin 15.4 g/dL (12.9-16.9); Immature Granulocytes % 0.3 % (0-4); Lymphocytes # 2.7 K/mcL (0.6-4.6); Lymphocytes % 38.8 %; Mean Corpuscular HGB Conc 35.1 g/dL (31.6-35.5); Mean Corpuscular Hemoglobin 32.4 pg (28.0-33.3); Mean Corpuscular Volume 92.2 fL (83.0-100.0); Mean Platelet Volume 10.1 fL (9.4-12.4); Monocytes # 0.5 K/mcL (0.0-1.3); Monocytes % 7.6 %; Neutrophils # 3.4 K/mcL (1.6-8.9); Platelet Count 218 K/mcL (140-400); Red Blood Count 4.76 M/mcL (4.19-5.50); Segmented Neutrophils % 48.7 %
--- NOTE | 2017-10-24 08:00 | Internal Med Progress Note ---
<Regina Virk - Last Filed: 10/24/17 07:57> Date of Encounter: 10/24/17 Time of Encounter: 07:57 - Assessment and plan (1) Chest pain Current Visit: Yes Status: Acute Assessment and plan: pt on classroom monitor serial troponin negative EKG reviewed showed normal sinus rhythm no acute ST, T changes and no acute ischemic changes noticed continue pt on ASA, and Nitro as needed for pain pharmacological stress test pending Qualifiers: Chest pain type: precordial chest pain Qualified Code(s): R07.2 - Precordial pain (2) Hyperlipemia Current Visit: Yes Status: Chronic Assessment and plan: on Statin Qualifiers: Hyperlipidemia type: mixed hyperlipidemia Qualified Code(s): E78.2 - Mixed hyperlipidemia (3) Hypertension Current Visit: Yes Status: Chronic Assessment and plan: Well controlled with home medications resumed all home medications Qualifiers: Hypertension type: essential hypertension Qualified Code(s): I10 - Essential (primary) hypertension (4) Obesity (BMI 30-39.9) Current Visit: Yes Status: Chronic Assessment and plan: Counseled to lose weight (5) Diabetes mellitus Current Visit: Yes Status: Chronic Assessment and plan: Seems to be uncontrolled diabetes type II he does take Mixed insulin at home placed him on insulin sliding scale along with pre-meal insulin hemoglobin A-1 C 10.6 Qualifiers: Diabetes mellitus type: type 2 Diabetes mellitus rat exterminator insulin use: with rat exterminator use Diabetes mellitus complication status: with neurologic complications Diabetes mellitus complication detail: with polyneuropathy Qualified Code(s): E11.42 - Type 2 diabetes mellitus with diabetic polyneuropathy; Z79.4 - superintendent [employer] (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 No falls or trauma. No obvious deformity. We will order left upper extremity Doppler to rule out DVT. (7) DVT prophylaxis Current Visit: Yes Status: Acute Assessment and plan: SQ heparin - Time Spent With Patient Total time spent is greater than 50% in coordination of care (as documented) at patient's floor/unit and/or counseling patient: - Subjective Interval history: Patient states he is doing well today. Having some low back pain which is chronic. Asked for lidocaine patch. Patient also states he is still having some left axilla pain. Denies any falls or trauma to the area. Patient denies any chest pain, palpitations or pressure. Eating and drinking without difficulty. Good urinary output. - Constitutional Vitals: Temp Pulse Resp BP Pulse Ox 98.1 F 65 14 133/80 98 10/23/17 19:49 10/24/17 05:31 10/24/17 05:31 10/23/17 19:49 10/24/17 05:31 General appearance: Present: A&O X 3, no acute distress, answers questions appropriately - Head Head exam: Present: atraumatic, normocephalic - Respiratory Respiratory exam: Present: CTAB. Absent: accessory muscle use, rales, rhonchi, wheezes - Cardiovascular Cardiovascular exam: Present: RRR, +S1, +S2. Absent: gallop, rubs - GI/Abdominal GI/Abdominal exam: Present: normal bowel sounds, soft, no peritoneal signs. Absent: distended, tenderness - Neurological Exam Neurological exam: Present: alert, oriented X3, no focal deficits Internal Medicine: Result - Labs CBC & Chem 7: 10/24/17 06:28 10/22/17 09:55 Labs: Short CBC 10/24/17 Range/Units 06:28 WBC 6.9 (4.3-11.1) K/mcL Hgb 15.4 (12.9-16.9) g/dL Hct 43.9 (37.5-50.1) % Plt Count 218 (140-400) K/mcL Neutrophils # 3.4 (1.6-8.9) K/mcL - ABG Interpretation ABG results: PT/INR, D-dimer D-Dimer 400 ng/mLFEU (0-500) 10/22/17 09:55 - VTE Documentation of Mechanical Device: Graduated compression elastic hosiery Consult Discharge Plan - Plan Referrals: Anamika Gtz, [employer] [Primary Care Provider] - <Hakan Salas - Last Filed: 10/24/17 13:25> Date of Encounter: 10/24/17 - Assessment and plan (1) Chest pain Current Visit: Yes Status: Acute Qualifiers: Chest pain type: precordial chest pain Qualified Code(s): R07.2 - Precordial pain (2) Diabetes mellitus Current Visit: Yes Status: Chronic Qualifiers: Diabetes mellitus type: type 2 Diabetes mellitus rat exterminator insulin use: with alf use Diabetes mellitus complication status: with neurologic complications Diabetes mellitus complication detail: with polyneuropathy Qualified Code(s): E11.42 - Type 2 diabetes mellitus with diabetic polyneuropathy; Z79.4 - jail (current) use of insulin; Z79.4 - jail ( current) use of insulin; Z79.4 - jail (current) use of insulin; Z79.4 - jail (current) use of insulin (3) Hyperlipemia Current Visit: Yes Status: Chronic Qualifiers: Hyperlipidemia type: mixed hyperlipidemia Qualified Code(s): E78.2 - Mixed hyperlipidemia (4) Hypertension Current Visit: Yes Status: Chronic Qualifiers: Hypertension type: essential hypertension Qualified Code(s): I10 - Essential (primary) hypertension (5) Obesity (BMI 30-39.9) Current Visit: Yes Status: Chronic - Time Spent With Patient Total time spent is greater than 50% in coordination of care (as documented) at patient's floor/unit and/or counseling patient: - Constitutional Vitals: Temp Pulse Resp BP Pulse Ox 97.8 F 71 18 150/94 96 10/24/17 08:13 10/24/17 08:13 10/24/17 08:13 10/24/17 08:13 10/24/17 08:13 Internal Medicine: Result - Labs CBC & Chem 7: 10/24/17 06:28 10/24/17 09:43 Labs: Short CBC 10/24/17 Range/Units 06:28 WBC 6.9 (4.3-11.1) K/mcL Hgb 15.4 (12.9-16.9) g/dL Hct 43.9 (37.5-50.1) % Plt Count 218 (140-400) K/mcL Neutrophils # 3.4 (1.6-8.9) K/mcL BMP 10/24/17 09:43 Sodium 137 Potassium 4.5 Chloride 103 Carbon Dioxide 25 BUN 21 Creatinine 0.85 Glucose 309 H Calcium 9.1 - ABG Interpretation ABG results: PT/INR, D-dimer D-Dimer 400 ng/mLFEU (0-500) 10/22/17 09:55 - Attending Attestation I examined this patient and my medical decision-making was reviewed with the Resident Physician Dr. Virk. I agree with the documented findings, disposition and treatment plan as described except to the extent set forth below. Mr. Camacho is a 62 y/o M admitted here chest pain. He denied any active CP now. Denied any SOB. Had part 1 of stress test y/d. No events over night Heart: S1S2+ RRR No murmurs a/p 1. Acute Chest pain Need to r/o ACS Stress test - P cont on tele so far negative troponin
[2017-10-24] MEDS: Nicotine 21 MG PATCH.TD24 TD SCH (08:13)
[2017-10-24] MEDS: Aspirin Enteric Coated 81 MG Tablet PO SCH (08:15)
[2017-10-24] MEDS: *HR* HYDROcodone/Acet 5/325 mg TABLET PO PRN ×3 (08:15→20:43)
[2017-10-24] MEDS: Metoprolol XL (24 HR) Succ 50 MG TAB.ER.24H PO SCH (08:15)
[2017-10-24] MEDS: Gabapentin 400 MG CAPSULE PO SCH ×3 (08:16→20:43)
[2017-10-24] MEDS: Lisinopril 20 MG TABLET PO SCH ×2 (08:16→20:44)
[2017-10-24] MEDS: Insulin DETEMIR 100 UNIT/ML X5UNITS SQ SCH ×2 (08:18→22:15)
[2017-10-24] MEDS: Insulin LISPRO 300 UNITS/3 ML VIAL SQ SCH ×7 (08:19→22:30)
[2017-10-24 10:51] LABS: BUN/Creatinine Ratio 25 (6-26); Blood Urea Nitrogen 21 mg/dL (8-23); Calcium 9.1 mg/dL (8.6-10.3); Carbon Dioxide 25 mEq/L (23-29); Chloride 103 mEq/L (98-107); Glucose 309 mg/dL (70-105); Osmolality,Calculated 299 (280-300); Potassium 4.5 mEq/L (3.5-5.1); Sodium 137 mEq/L (136-145); eGFR For African Americans > 60 (> 60); eGFR For Non-African Americans > 60 (> 60)
[2017-10-25] MEDS: *HR* Heparin 5,000 UNIT/ML VIAL SQ SCH (05:06)
[2017-10-25 06:00] LABS: Basophils # 0.1 K/mcL (0.0-0.2); Eosinophils # 0.2 K/mcL (0.0-0.6); Eosinophils % 3.1 %; Hematocrit 43.7 % (37.5-50.1); Hemoglobin 15.4 g/dL (12.9-16.9); Immature Granulocytes % 0.4 % (0-4); Lymphocytes # 2.5 K/mcL (0.6-4.6); Lymphocytes % 36.7 %; Mean Corpuscular HGB Conc 35.2 g/dL (31.6-35.5); Mean Corpuscular Hemoglobin 32.2 pg (28.0-33.3); Mean Corpuscular Volume 91.2 fL (83.0-100.0); Mean Platelet Volume 10.1 fL (9.4-12.4); Monocytes # 0.5 K/mcL (0.0-1.3); Monocytes % 7.7 %; Neutrophils # 3.4 K/mcL (1.6-8.9); Platelet Count 207 K/mcL (140-400); Red Blood Count 4.79 M/mcL (4.19-5.50); Red Cell Distribution Width 12.9 % (11.5-14.5); Segmented Neutrophils % 51.1 %
[2017-10-25 06:22] LABS: BUN/Creatinine Ratio 28 (6-26); Blood Urea Nitrogen 20 mg/dL (8-23); Calcium 9.7 mg/dL (8.6-10.3); Carbon Dioxide 27 mEq/L (23-29); Chloride 102 mEq/L (98-107); Glucose 324 mg/dL (70-105); Osmolality,Calculated 299 (280-300); Potassium 4.3 mEq/L (3.5-5.1); Sodium 137 mEq/L (136-145); eGFR For African Americans > 60 (> 60); eGFR For Non-African Americans > 60 (> 60)
[2017-10-25] MEDS: Metoprolol XL (24 HR) Succ 50 MG TAB.ER.24H PO SCH (08:19)
[2017-10-25] MEDS: Nicotine 21 MG PATCH.TD24 TD SCH (08:19)
[2017-10-25] MEDS: Insulin DETEMIR 100 UNIT/ML X5UNITS SQ SCH (08:19)
[2017-10-25] MEDS: Aspirin Enteric Coated 81 MG Tablet PO SCH (08:20)
[2017-10-25] MEDS: Gabapentin 400 MG CAPSULE PO SCH (08:20)
[2017-10-25] MEDS: Lisinopril 20 MG TABLET PO SCH (08:20)
[2017-10-25] MEDS: Insulin LISPRO 300 UNITS/3 ML VIAL SQ SCH ×4 (08:21→12:05)
--- NOTE | 2017-10-25 10:28 | Discharge Summary ---
<Paxton Jacobs - Last Filed: 10/25/17 11:40> - NOTES TO OUTPATIENT PROVIDER Notes to Outpatient Provider: Follow up for chest pain, normal EKG, neg CXR, neg troponins, neg stress test. Orders not resulted at time of discharge: Pending orders 10/23/17 09:00 NM sae perf SPECT multi [NM] Routine Date of Encounter: 10/25/17 Time of Encounter: 09:30 - Discharge Diagnosis (1) Hypertension Priority: Secondary Status: Chronic Qualifiers: Hypertension type: essential hypertension Qualified Code(s): I10 - Essential (primary) hypertension (2) Hyperlipemia Priority: Secondary Status: Chronic Qualifiers: Hyperlipidemia type: mixed hyperlipidemia Qualified Code(s): E78.2 - Mixed hyperlipidemia (3) Obesity (BMI 30-39.9) Priority: Secondary Status: Chronic (4) Diabetes mellitus Priority: Secondary Status: Chronic Qualifiers: Diabetes mellitus type: type 2 Diabetes mellitus exterminator termite insulin use: with exterminator termite use Diabetes mellitus complication status: with neurologic complications Diabetes mellitus complication detail: with polyneuropathy Qualified Code(s): E11.42 - Type 2 diabetes mellitus with diabetic polyneuropathy; Z79.4 - long term care pharmacist (current) use of insulin; Z79.4 - long term care pharmacist ( current) use of insulin; Z79.4 - long term care pharmacist (current) use of insulin; Z79.4 - long term care pharmacist (current) use of insulin (5) Chest pain Priority: Primary Status: Acute Qualifiers: Chest pain type: unspecified Qualified Code(s): R07.9 - Chest pain, unspecified Hospital course: Mr. Camacho is a 62 year old male with a known past medical history of hypertension, hyperlipidemia, TIA X2, diabetes type II and depression. Patient presented to emergency room complaining about left chest wall pain x 1 day. Noted radiation of pain to his left shoulder, pain described as someone sitting on a chest, associated lightheadedness, lethargic and weak. Denied past cardiac cath, noted normal stress test a couple of years ago. Significant family history of [place] all his siblings had heart attack in their early age in 50s. Patient was admitted for ACS rule out. EKG showed NSR, occasional PVC, no signs of ischemia. CXR negative. Troponins trended and negative. Stress test ordered, patient required 2 day non-exercise stress test- found to be negative for ischemia. Patient also noted having left axilla pain, doppler ordered to r/o LUE DVT- this was negative. Patient on aspirin, statin, ACEI, and metoprolol. Patient stated chest pain improved in ED and he denies any chest pain during examination today. Discharge discussed with: patient, family - Time Spent with Patient Total time spent providing and/or coordinating discharge services: Less than 30 minutes - Discharge Medications Home Medications: Atorvastatin [Lipitor] 40 mg PO DAILY 05/20/15 [History] Citalopram [CeleXA] 40 mg PO DAILY 05/20/15 [History] Cyclobenzaprine [Flexeril] 10 mg PO TID 05/20/15 [History] Gabapentin [Neurontin] 1,200 mg PO TID 05/20/15 [History] Lisinopril [Zestril] 20 mg PO BID 05/20/15 [History] Insulin NPH Hum/Reg Insulin Hm [Novolin 70-30 100 Unit/ml Vial] 100 unit SQ BID 03/07/17 [History] Insulin Regular, Human [Novolin R] 0 - 35 unit IJ TID PRN 03/07/17 [History] Aspirin Enteric Coated [Aspirin EC] 81 mg PO DAILY #30 tablet. 03/08/17 [Rx] Metoclopramide [Reglan] 10 mg PO Q6HR PRN #30 tablet 03/08/17 [Rx] Metoprolol Succinate [Toprol Xl] 100 mg PO DAILY 10/22/17 [History] Oxycodone HCl/Acetaminophen [Percocet 10-325 mg Tablet] 1 tab PO Q4H PRN [History] Allergies/Adverse Reactions: 3 Allergy/AdvReac Type Severity Reaction Status Date / Time Enoxaparin [From Lovenox] AdvReac Rash Verified 03/07/17 15:04 Date of admission: 10/22/17 12:29 Primary care physician: Anamika Gtz CNP Discharging clinician: Hakan Salas Anticipated date of discharge: 10/25/17 - Constitutional Vitals: Temp Pulse Resp BP Pulse Ox 98.1 F 62 15 153/62 93 10/25/17 06:49 10/25/17 06:49 10/25/17 06:49 10/25/17 06:49 10/25/17 06:49 General appearance: Present: cooperative, A&O X 3, no acute distress, answers questions appropriately - Head Head exam: Present: atraumatic, normal inspection, normocephalic - Eye Eye exam: Present: EOMI, normal appearance - ENT ENT exam: Present: mucous membranes moist - Neck Neck exam general surgery: Present: full ROM, normal inspection - Respiratory Respiratory exam: Present: CTAB. Absent: respiratory distress, rhonchi, stridor , wheezes - Cardiovascular Cardiovascular exam: Present: RRR, +S1, +S2. Absent: gallop, rubs - GI/Abdominal GI/Abdominal exam: Present: normal bowel sounds, soft. Absent: tenderness - Neurological Exam Neurological exam: Present: alert, oriented X3, no focal deficits. Absent: speech deficit - Psychiatric Psychiatric exam: Present: normal affect, normal mood - Skin Skin exam: Present: intact, normal color, warm - Patient Status Disposition: Home, Self-Care Condition: Good Functional capacity at discharge: independent ambulation Overall status at discharge: patient is back to baseline - Discharge Instructions Instructions: Chest Pain (DC), Acute Coronary Syndrome (GEN), Meal Planning with Diabetes Exchanges (DC), Low Sodium Diet (DC) Follow Up With: Shani Stanley [employer] [Advanced Practice Nurse] - 10/29/17 1:00 pm Additional Instructions: Please take all medication as listed. Follow up with your primary care physician within the week. Please return or seek medical care if you have new or worsening symptoms such as chest pain, shortness of breath, abdominal pain, numbness, tingling, dizziness, confusion. - Diet and Activity Activity: resume usual activities as tolerated Diet: diabetic diet - VTE Documentation of Mechanical Device: Graduated compression elastic hosiery <Derejelapannicky,Rambabu - Last Filed: 10/25/17 17:00> Orders not resulted at time of discharge: Pending orders 10/23/17 09:00 NM sae perf SPECT multi [NM] Routine Date of Encounter: 10/25/17 - Discharge Diagnosis (1) Hypertension Status: Chronic Qualifiers: Hypertension type: essential hypertension Qualified Code(s): I10 - Essential (primary) hypertension (2) Hyperlipemia Status: Chronic Qualifiers: Hyperlipidemia type: mixed hyperlipidemia Qualified Code(s): E78.2 - Mixed hyperlipidemia (3) Obesity (BMI 30-39.9) Status: Chronic (4) Diabetes mellitus Status: Chronic Qualifiers: Diabetes mellitus type: type 2 Diabetes mellitus exterminator termite insulin use: with exterminator termite use Diabetes mellitus complication status: with neurologic complications Diabetes mellitus complication detail: with polyneuropathy Qualified Code(s): E11.42 - Type 2 diabetes mellitus with diabetic polyneuropathy; Z79.4 - long term care pharmacist (current) use of insulin; Z79.4 - long term care pharmacist ( current) use of insulin; Z79.4 - group home (current) use of insulin; Z79.4 - long term care pharmacist (current) use of insulin (5) Chest pain Status: Acute Qualifiers: Chest pain type: unspecified Qualified Code(s): R07.9 - Chest pain, unspecified Hospital course: Mr. Camacho is a 62 year old male - Time Spent with Patient Total time spent providing and/or coordinating discharge services: Date of admission: 10/22/17 12:29 Primary care physician: Anamika Gtz CNP - Constitutional Vitals: Temp Pulse Resp BP Pulse Ox 97.7 F 67 15 164/92 96 10/25/17 11:10 10/25/17 11:10 10/25/17 11:10 10/25/17 11:10 10/25/17 11:10 - Attending Attestation I examined this patient and my medical decision-making was reviewed with the Resident Physician Dr. Burch. I agree with the documented findings, disposition and treatment plan as described except to the extent set forth below. Mr. Camacho is a 62 y/o M admitted here chest pain. He denied any active CP now. Denied any SOB. No events over night Heart: S1S2+ RRR No murmurs a/p 1. Acute Chest pain Stress test came back as negative for any ischemia Recommend to continue ASA, Statin ACEI and BB
[2017-10-25 11:14] VITALS: BP 164/92
[2017-10-25] MEDS: *HR* HYDROcodone/Acet 5/325 mg TABLET PO PRN (12:04)
== END 2017-10-25 15:18 | disposition home or self-care (01) ==
LOC: 2NENU 09:41 → 3NENU 09:41 → EMEROO 09:41 → SUATTDRO 12:29 → 2NENU 13:26
PROVIDERS: ADMIT Family Medicine; ATTEND Family Medicine

== ENCOUNTER 2018-05-15 22:20 | Observation (INO) ==
[2018-05-15] MEDS ORDERED: Gadolinium Contrast Agent (WT Based) IV PRN (23:03)
[2018-05-15] MEDS ORDERED: Aspirin 81 MG TAB.CHEW PO STA (23:05)
[2018-05-15] MEDS ORDERED: Metoclopramide 10 MG/2 ML VIAL IVP STA (23:05)
[2018-05-15 23:17] LABS: Basophils # 0.1 K/mcL (0.0-0.2); Eosinophils # 0.1 K/mcL (0.0-0.6); Eosinophils % 1.5 %; Hemoglobin 15.5 g/dL (12.9-16.9); Immature Granulocytes % 0.4 % (0-4); Lymphocytes # 1.9 K/mcL (0.6-4.6); Lymphocytes % 28.8 %; Mean Corpuscular Hemoglobin 31.5 pg (28.0-33.3); Mean Corpuscular Volume 87.4 fL (83.0-100.0); Monocytes # 0.5 K/mcL (0.0-1.3); Monocytes % 6.7 %; Neutrophils # 4.1 K/mcL (1.6-8.9); Platelet Count 228 K/mcL (140-400); Red Blood Count 4.92 M/mcL (4.19-5.50); Segmented Neutrophils % 61.6 %
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
[2018-05-15 23:51] LABS: Troponin I < 0.03 ng/mL (< 0.04)
[2018-05-15 23:56] LABS: Glucose 400 mg/dL (70-105)
[2018-05-15 23:57] LABS: BUN/Creatinine Ratio 17 (6-26); Blood Urea Nitrogen 17 mg/dL (8-23); Calcium 9.9 mg/dL (8.6-10.3); Carbon Dioxide 27 mEq/L (23-29); Chloride 99 mEq/L (98-107); Osmolality,Calculated 296 (280-300); Potassium 3.7 mEq/L (3.5-5.1); Sodium 134 mEq/L (136-145); eGFR For Non-African Americans > 60 (> 60)
[2018-05-16] MEDS ORDERED: *HR* Morphine 2 MG/ML SYRINGE IVP ONE (00:44)
[2018-05-16] MEDS ORDERED: Naloxone 0.4 MG/ML INJ IVP PRN (03:36)
[2018-05-16] MEDS ORDERED: Dextrose Gel 15 GM/37.5 ML TUBE PO PRN ×2 (03:45)
[2018-05-16] MEDS ORDERED: *HR* Dextrose 50 % in Water (Syg) 50 ML SYRINGE IVP PRN ×2 (03:45→11:55)
[2018-05-16] MEDS ORDERED: D5% in Water 1,000 ML IVC PRN ×2 (03:45→11:55)
--- NOTE | 2018-05-16 03:45 | Internal Med History&Physical ---
Date of Encounter: 05/16/18 Time of Encounter: 04:10 Internal Medicine - H&P: HPI Chief complaint: Chest pain, dizziness Admitted From: Emergency Dept Plans for Post Hospital Care: Home History of present illness: Mr. Camacho is a 62 year old male Patient presented to the emergency room with nonradiating chest pain that began earlier in the day. He also had some dizziness, headache and balance issues. He has a past medical history of TIAs, cardiac catheterization 10 years ago, diabetes and hypertension. He states the chest pain started when he was sitting on his couch, he tried laying down but did not improve. His headache began shortly after as well as ringing in the ears. He came to the emergency room for further evaluation. The emergency room patient's CBC was within normal limits. Patient's BMP also was within normal limits. Troponin was undetectable and BNP was 22. Chest x- ray showed no acute cardiopulmonary disease and head CT showed no acute intracranial abnormality. Patient's EKG showed normal sinus rhythm with no ST changes. He received a dose of aspirin, meclizine, morphine and Reglan. He was sent to the medical floor for further management. Upon my evaluation patient states that his symptoms have improved. He has never had anything like this before. He denies nausea, shortness of breath, diarrhea, constipation and abdominal pain. His chest pain was in the center of his chest and did not seem to radiate. During my exam patient did get dizzy upon sitting up but recovered quickly. Past Med Surg Social Fam HX - Past Medical History Medical history: diabetes, hypertension, TIA Additional medical history: TIA X2 Psychiatric history: anxiety - Past Surgical History Surgical History: appendectomy, cholecystectomy Additional surgical history: BACK SURGERY , 2 KNEE REPLACEMENT , HIP REPLACEMENT - Social History Smoking Status: Former smoker Smokeless Tobacco Status: Yes Alcohol use: none Drug use: none - Family History Mother Living Status: Hx Family Cardiac Disorders: Yes Hx Family Endocrine Disorder: Yes (DM) Father Living Status: Hx Family Cardiac Disorders: Yes Hx Family Endocrine Disorder: Yes (DM) Internal Medicine - H&P: Meds Atorvastatin [Lipitor] 40 mg PO DAILY 05/20/15 [History] Citalopram [CeleXA] 40 mg PO DAILY 05/20/15 [History] Cyclobenzaprine [Flexeril] 10 mg PO TID 05/20/15 [History] Gabapentin [Neurontin] 1,200 mg PO BID 05/20/15 [History] Lisinopril [Zestril] 20 mg PO BID 05/20/15 [History] Insulin NPH Hum/Reg Insulin Hm [Novolin 70-30 100 Unit/ml Vial] 100 unit SQ BID 03/07/17 [History] Insulin Regular, Human [Novolin R] 0 - 35 unit IJ TID PRN 03/07/17 [History] Aspirin Enteric Coated [Aspirin EC] 81 mg PO DAILY #30 tablet. 03/08/17 [Rx] Metoclopramide [Reglan] 10 mg PO Q6HR PRN #30 tablet 03/08/17 [Rx] Metoprolol Succinate [Toprol Xl] 100 mg PO DAILY 10/22/17 [History] Oxycodone HCl/Acetaminophen [Percocet 10-325 mg Tablet] 2 tab PO Q8HR PRN 10/22/17 [History] Allergy/AdvReac Type Severity Reaction Status Date / Time Enoxaparin [From Lovenox] AdvReac Rash Verified 03/07/17 15:04 All Systems PM: A 10-system review of systems was performed and is negative for pertinent findings except as documented above in the HPI. - Constitutional Vitals: Temp Pulse Resp BP Pulse Ox 97.8 F 75 16 147/91 97 05/16/18 01:40 05/16/18 01:40 05/16/18 01:40 05/16/18 01:40 05/16/18 01:40 General appearance: Present: cooperative, A&O X 3, pleasant, no acute distress, answers questions appropriately Exam: - - Head Head exam: Present: normal inspection - Eye Eye exam: Present: EOMI, normal appearance, PERRL. Absent: nystagmus - Neck Neck exam general surgery: Present: full ROM. Absent: tenderness - Respiratory Respiratory exam: Present: CTAB. Absent: accessory muscle use, chest wall tenderness, rales, respiratory distress, rhonchi, wheezes - Cardiovascular Cardiovascular exam: Present: RRR. Absent: diastolic murmur, systolic murmur - GI/Abdominal GI/Abdominal exam: Present: normal bowel sounds, soft. Absent: tenderness - Extremities Exam Extremities exam: Present: pedal edema, tenderness. Absent: calf tenderness, warm, radial pulses palpable and symmetrical Additional comments: 1= pitting edema left more than right - Neurological Exam Neurological exam: Present: CN II-XII intact, oriented X3, no focal deficits, strengths equal and symetr throughout. Absent: pronater drift, facial droop, speech deficit - Skin Skin exam: Present: dry, normal color, warm Internal Med - H&P Results - Labs CBC & Chem 7: 05/15/18 23:00 05/15/18 23:00 Labs: Short CBC 05/15/18 Range/Units 23:00 WBC 6.7 (4.3-11.1) K/mcL Hgb 15.5 (12.9-16.9) g/dL Hct 43.0 (37.5-50.1) % Plt Count 228 (140-400) K/mcL Neutrophils # 4.1 (1.6-8.9) K/mcL BMP 05/15/18 23:00 Sodium 134 L Potassium 3.7 Chloride 99 Carbon Dioxide 27 BUN 17 Creatinine 1.00 Glucose 400 H Calcium 9.9 Cardiac Enzymes 05/15/18 Range/Units 23:00 Troponin I < 0.03 (< 0.04) ng/mL - Impressions ITS Impressions Chest X-Ray 05/15/18 22:35 IMPRESSION: No acute cardiopulmonary disease. D/ / Elfego Palacios MD / Elfego Palacios MD Interpreting Provider: Elfego Palacios MD Head CT 05/15/18 23:02 IMPRESSION: No acute intracranial abnormality. D/ / Tiffani Patino MD / Tiffani Patino MD Interpreting Provider: Tiffani Patino MD - Assessment and plan (1) Chest pain Current Visit: Yes Status: Acute Assessment and plan: Now resolved, patient received a dose of morphine in the emergency room. History of cardiac catheterization 10 years ago, and a stress test was performed 6 months ago. There is no echocardiogram in patient's chart. Patient also had a Holter monitor this past November, that demonstrated sinus tachycardia with PVCs that correlated with patient's diary entries. He had occasional nonsustained V. tach, longest was 3 beats. He had rare PACs and 2 brief PSVT's longest of 18 beats. 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 Qualifiers: Chest pain type: unspecified Qualified Code(s): R07.9 - Chest pain, unspecified (2) Dizziness Current Visit: Yes Status: Acute Assessment and plan: Possibly secondary to vertigo. Patient's symptoms improved with meclizine. CT head negative. Patient also was experiencing tinnitus, which improved with meclizine. MRI in the morning PT and OT consult Consider neurology consult (3) Nausea Current Visit: Yes Status: Acute Assessment and plan: Improved with Reglan. Continue to monitor (4) Diabetes mellitus Current Visit: No Status: Chronic Assessment and plan: Patient is insulin dependent diabetic. 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
[2018-05-16] MEDS ORDERED: Gadolinium Contrast Agent (WT Based) IV PRN (04:51)
[2018-05-16 05:42] LABS: Hematocrit 41.9 % (37.5-50.1); Hemoglobin 15.2 g/dL (12.9-16.9); Mean Corpuscular HGB Conc 36.3 g/dL (31.6-35.5); Mean Corpuscular Hemoglobin 31.1 pg (28.0-33.3); Mean Corpuscular Volume 85.9 fL (83.0-100.0); Mean Platelet Volume 10.1 fL (9.4-12.4); Platelet Count 232 K/mcL (140-400); Red Blood Count 4.88 M/mcL (4.19-5.50); Red Cell Distribution Width 12.3 % (11.5-14.5)
[2018-05-16 06:00] LABS: BUN/Creatinine Ratio 25 (6-26); Blood Urea Nitrogen 19 mg/dL (8-23); Carbon Dioxide 28 mEq/L (23-29); Chloride 103 mEq/L (98-107); Glucose 139 mg/dL (70-105); Osmolality,Calculated 293 (280-300); Potassium 3.3 mEq/L (3.5-5.1); Sodium 139 mEq/L (136-145); eGFR For Non-African Americans > 60 (> 60)
[2018-05-16] MEDS: Insulin LISPRO 300 UNITS/3 ML VIAL SQ SCH ×4 (08:49→22:11)
[2018-05-16] MEDS ORDERED: Perflutren Lipid Microsphere 1.3 ML in 0.9 % Sodium Chloride 8.7 ML IVP ONE (14:27)
--- NOTE | 2018-05-16 14:34 | Event Note ---
Date of Encounter: 05/16/18 Time of Encounter: 14:32 I have performed a face- to face examination of this patient and reviewed chambers components of Assessment and plan from the ride mechanic. This is a 62-year-old male who initially presented with pressure-like sensation in his chest in addition to feeling dizzy. He states that his dizziness was more so when his eyes were closed in a shower. He does endorse vertigo which is more or less positional and moving his face to the left side. He has responded to a trial of meclizine. An MRI and echo of his heart is pending. He does have hyperglycemia and we are going to increase his sliding scale insulin to moderate. 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 I will also is placed a Lidoderm patch and given tenderness in his mid to lower back.
[2018-05-16] MEDS: Insulin NPH/REG 70/30 100 UNIT/ML (x5UNIT) SQ SCH (16:29)
[2018-05-16] MEDS ORDERED: *HR* OxyCODONE/APAP 10/325 TABLET PO PRN (17:57)
[2018-05-16] MEDS: Gabapentin 400 MG CAPSULE PO SCH (20:12)
[2018-05-16] MEDS: Lisinopril 20 MG TABLET PO SCH (20:12)
[2018-05-16] MEDS ORDERED: Insulin LISPRO 300 UNITS/3 ML VIAL SQ SCH ×2 (21:00)
[2018-05-16] MEDS ORDERED: Acetaminophen 325 MG TABLET PO ONE (23:08)
[2018-05-17 04:48] LABS: BUN/Creatinine Ratio 21 (6-26); Blood Urea Nitrogen 19 mg/dL (8-23); Calcium 9.8 mg/dL (8.6-10.3); Carbon Dioxide 26 mEq/L (23-29); Chloride 102 mEq/L (98-107); Glucose 337 mg/dL (70-105); Osmolality,Calculated 298 (280-300); Potassium 3.9 mEq/L (3.5-5.1); Sodium 136 mEq/L (136-145); eGFR For Non-African Americans > 60 (> 60)
[2018-05-17] MEDS: Lisinopril 20 MG TABLET PO SCH (07:44)
[2018-05-17] MEDS: Gabapentin 400 MG CAPSULE PO SCH (07:44)
[2018-05-17] MEDS: Insulin LISPRO 300 UNITS/3 ML VIAL SQ SCH ×2 (07:48→11:41)
[2018-05-17] MEDS ORDERED: Metoprolol XL (24 HR) Succ 50 MG TAB.ER.24H PO SCH (09:00)
[2018-05-17] MEDS ORDERED: Aspirin Enteric Coated 81 MG Tablet PO SCH (09:00)
--- NOTE | 2018-05-17 10:13 | Internal Med Progress Note ---
Hospitalist Progress Note - Encounter Date of Encounter: 05/17/18 Time of Encounter: 09:45 - Subjective Interval History: This 60 years old male with past medical history of diabetes, hypertension, TIA, past smoker presented to ED for midsternal pressure-like chest pain, with dizziness, headache and vertigo while turning his head to his left side. The p atient had cardiac catheter done 10 years ago and cardiac stress test done six- month back was negative for ischemia. His chest x-ray done in ED did not show any cardiopulmonary disease and CT scan of head did not show any acute intracranial abnormality. EKG did not show any ST or T changes, serial troponin was negative. He was admitted for further workup. Today during my bedside visit the patient was lying comfortably on the bed, not in acute distress, well oriented to time place and person, answering question appropriately, he admitted minimal chest pain 1-2/10. He has minimal vertigo while he was trying to look at left side, but better than before. MRI head: Multifocal small vessel ischemia, no acute intracranial pathology, - Exam Vitals: Temp Pulse Resp BP Pulse Ox 97.6 F 92 18 158/104 95 05/17/18 07:51 05/17/18 07:51 05/17/18 07:51 05/17/18 07:51 05/17/18 07:51 Exam: -Gen: Alert, awake , Oriented to time,place and person Chest: Diminished BS b/l, No crackles, No rales, No wheezing Heart: S1S2+ RRR No Murmurs Abd: Soft, NT, BS + No organomegaly Ext: No edema, pulses are palpable, no tenderness Neuro: No focal neuro deficits Psych: Normal mood Skin: No rash - Assessment and Plan (1) Chest pain Current Visit: Yes Status: Acute Assessment and Plan: The patient had pressure-like (2) Dizziness Current Visit: Yes Status: Acute (3) Diabetes mellitus Current Visit: No Status: Chronic (4) DVT prophylaxis Current Visit: Yes Status: Acute - Time Spent with Patient Total time spent is greater than 50% in coordination of care (as documented) at patient's floor/unit and/or counseling patient: Internal Medicine: Result - Labs CBC & Chem 7: 05/16/18 04:42 05/17/18 03:22 Labs: BMP 05/17/18 03:22 Sodium 136 Potassium 3.9 Chloride 102 Carbon Dioxide 26 BUN 19 Creatinine 0.91 Glucose 337 H Calcium 9.8 Cardiac Enzymes 05/16/18 Range/Units 11:54 Troponin I < 0.03 (< 0.04) ng/mL - ABG Interpretation ABG results: PT/INR, D-dimer D-Dimer 265 ng/mLFEU (0-500) 05/15/18 23:00 - Impressions Impressions Brain MRI 05/16/18 04:51 IMPRESSION: Mild multifocal small-vessel ischemic change bilaterally No acute infarct. No mass or hemorrhage D/ / Elfego Snyder / Elfego Snyder Interpreting Provider: Elfego Snyder Echocardiogram 05/16/18 04:57 Impressions: LVEF 70-75%, hyperdynamic LV. Mild concentric left ventricular hypertrophy. Mild left ventricular diastolic dysfunction. Normal right ventricular structure and function. No significant valvular dysfunction. No pulmonary hypertension. Mild ascending aorta dilatation. Left Ventricular Wall Motion: Rest Echo Findings The apex, apical inferior, mid inferior, basal inferior, apical anterior, mid anterior, basal anterior, apical septal, mid inferior septal, basal inferior septal, apical lateral, mid anterior lateral, basal anterior lateral, mid anterior septal, mid inferior lateral, basal anterior septal and basal inferior lateral taylor were hyperkinetic. Findings: Study Quality * Technically adequate exam. ECG Findings * Normal sinus rhythm. Left Ventricle * LVEF 70-75%, hyperdynamic LV. * Normal LV chamber size and systolic function. * Mild concentric left ventricular hypertrophy. * Mild left ventricular diastolic dysfunction. Right Ventricle * Normal right ventricular structure and function. Left Atrium * Normal left atrial size. Right Atrium * Normal right atrial size. Interatrial Septum * Interatrial septum not well evaluated. Aortic Valve * Trileaflet aortic valve. * No aortic stenosis. * No aortic regurgitation. Mitral Valve * Normal mitral valve structure. * No mitral stenosis. * Trace mitral regurgitation. Tricuspid Valve * Normal tricuspid valve structure. * No tricuspid stenosis. * Trace tricuspid regurgitation. * Estimated RVSP is 19 mmHg. * Estimated RA pressure is 3 mmHg. * No pulmonary hypertension. Pulmonic Valve * Pulmonic valve is not well visualized. * No pulmonic stenosis. * No pulmonic regurgitation. Aorta * Mild ascending aorta dilatation 3.8cm. Pericardium * The pericardium appears normal. IVC * Normal IVC dimensions and inspiratory collapse. Consult Discharge Plan - Plan Referrals: Anamika Gtz CNP [Primary Care Provider] - 05/23/18 1:00 pm () Aure Johnson MD [Partnered Physician] - 06/14/18 8:10 am (3) Diabetes mellitus Qualifiers: Diabetes mellitus type: type 2 Diabetes mellitus terminal supervisor insulin use: with terminal supervisor use Diabetes mellitus complication status: with neurologic complications Diabetes mellitus complication detail: with polyneuropathy Qualified Code(s): E11.42 - Type 2 diabetes mellitus with diabetic polyneuropathy; Z79.4 - halfway (current) use of insulin; Z79.4 - halfway (current) use of insulin; Z79.4 - lobsterman (current) use of insulin; Z79.4 - lobsterman (current) use of insulin
[2018-05-17] MEDS: Insulin NPH/REG 70/30 100 UNIT/ML (x5UNIT) SQ SCH (10:21)
[2018-05-17 11:08] VITALS: BP 145/88
--- NOTE | 2018-05-17 11:32 | Discharge Summary ---
- NOTES TO OUTPATIENT PROVIDER Notes to Outpatient Provider: Patient needs outpatient follow-up with his primary care physician within 1-2 weeks' time for dizziness and response to meclizine. He also needs a follow-up with cardiology in about 1-2 weeks' time upon discharge for this chest pressure symptoms. He may need an outpatient stress test and or further cardiac workup Date of Encounter: 05/17/18 Time of Encounter: 11:29 - Discharge Diagnosis (1) Chest pain Priority: Secondary Status: Acute Qualifiers: Chest pain type: unspecified Qualified Code(s): R07.9 - Chest pain, unspecified (2) Dizziness Priority: Primary Status: Acute (3) Diabetic gastroparesis Priority: Secondary Status: Acute (4) Diabetes mellitus Priority: Secondary Status: Chronic Qualifiers: Diabetes mellitus type: type 2 Diabetes mellitus care home insulin use: with care home use Diabetes mellitus complication status: with neurologic complications Diabetes mellitus complication detail: with polyneuropathy Qualified Code(s): E11.42 - Type 2 diabetes mellitus with diabetic polyneuropathy; Z79.4 - medical terminologist (current) use of insulin; Z79.4 - long-term (current) use of insulin; Z79.4 - long-term (current) use of insulin; Z79.4 - long-term (current) use of insulin (5) Obesity (BMI 30-39.9) Priority: Secondary Status: Chronic (6) Tobacco abuse Priority: Secondary Status: Chronic Hospital course: Mr. Camacho is a 62 year old male who was evaluated in the hospital for chest discomfort and tightness/dizziness. Patient has a history of diabetes and gastroesophageal reflux disease for a long duration. He was evaluated with serial cardiac enzymes and troponin trends were checked and they were all negative. He also underwent an echocardiogram which showed the normal ejection fraction and no significant findings which were abnormal. He also had vertigo on presentation which responded nicely to and there could be a possibility of benign positional vertigo. He will be given a prescription for meclizine and has been asked to follow up with the primary care provider within 1-2 weeks' time. He is to be seen by cardiology within the hospital before he is discharged. I doubt he will need any stress test within the hospital but he may need one as an outpatient and we will leave that to cardiology prior to discharge. We have explained to him the side effects of the medication that he is to be discharged with. He also has chronic lower back pain secondary to instrumentation and he felt relief with Lidoderm patches which will also be prescribed at discharge. Discharge discussed with: patient, nurse - Time Spent with Patient Total time spent providing and/or coordinating discharge services: 40 minutes - Discharge Medications Prescriptions: Lidocaine Patch [Lidoderm 5% patch] 1 each TP DAILY #5 adh..patch Meclizine [Antivert] 12.5 mg PO TID PRN #45 tablet PRN Reason: Dizziness Home Medications: Atorvastatin [Lipitor] 40 mg PO DAILY 05/20/15 [History] Citalopram [CeleXA] 40 mg PO DAILY 05/20/15 [History] Cyclobenzaprine [Flexeril] 10 mg PO TID 05/20/15 [History] Gabapentin [Neurontin] 1,200 mg PO BID 05/20/15 [History] Lisinopril [Zestril] 20 mg PO BID 05/20/15 [History] Insulin NPH Hum/Reg Insulin Hm [Novolin 70-30 100 Unit/ml Vial] 100 unit SQ BID 03/07/17 [History] Insulin Regular, Human [Novolin R] 0 - 35 unit IJ TID PRN 03/07/17 [History] Aspirin Enteric Coated [Aspirin EC] 81 mg PO DAILY #30 tablet. 03/08/17 [Rx] Metoclopramide [Reglan] 10 mg PO Q6HR PRN #30 tablet 03/08/17 [Rx] Metoprolol Succinate [Toprol Xl] 100 mg PO DAILY 10/22/17 [History] Oxycodone HCl/Acetaminophen [Percocet 10-325 mg Tablet] 2 tab PO Q8HR PRN 10/22/17 [History] Omeprazole [PriLOSEC] 40 mg PO DAILY 05/16/18 [History] Lidocaine Patch [Lidoderm 5% patch] 1 each TP DAILY #5 adh..patch 05/17/18 [Rx] Meclizine [Antivert] 12.5 mg PO TID PRN #45 tablet 05/17/18 [Rx] Allergies/Adverse Reactions: Allergy/AdvReac Type Severity Reaction Status Date / Time Enoxaparin [From Lovenox] AdvReac Rash Verified 03/07/17 15:04 Date of admission: 05/16/18 00:27 Primary care physician: Anamika Gtz CNP Consults: 05/16/18 04:52 Consult to Occupational Therapy [CONS] Routine Comment: Evaluate, develop and implement POC Reason for Consult: Patient has some dizziness upon standing, possible vertigo Does patient have active BEDREST order?: No Is patient medically & hemodynamically stable?: Yes Consult to Physical Therapy [CONS] Routine Comment: Evaluate, develop and implement POC Reason for Consult: Patient has some dizziness when standing, balance issues Does patient have active BEDREST order?: No Is patient medically & hemodynamically stable?: Yes 05/16/18 12:07 Consult to Cardiology [CONS] Routine Comment: Consulting Provider: Cardiology Ruthy Reason for Consult: Chest pain Time Notified: 12:08 Call Completed: Yes - Constitutional Vitals: Temp Pulse Resp BP Pulse Ox 97.8 F 68 18 145/88 94 05/17/18 11:04 05/17/18 11:04 05/17/18 11:04 05/17/18 11:04 05/17/18 11:04 General appearance: Present: cooperative, A&O X 3, pleasant, no acute distress, answers questions appropriately Exam: GENERAL: Alert, no distress, cooperative EYES: PERRLA, EOMI EARS: External ears normal, canals clear OROPHARYNX: Lips, mucosa, and tongue normal. Teeth and gums normal. Oropharynx normal. NECK: No jugulovenous distention, No carotid bruits, Carotid pulse normal contour, Supple LUNGS: Lungs clear to auscultation, Good diaphragmatic excursion CARDIAC: Normal S1 and S2; no rubs, murmurs, or gallops ABDOMEN: Abdomen soft, non-tender, BS normal, No masses or organomegaly Back: Mild tenderness to palpation L23 and 4 especially on paraspinal on the right side EXTREMITIES: Extremities normal, no deformities, edema, clubbing or skin discoloration. Good capillary refill., No ulcers NEURO: Gait normal. Reflexes normal and symmetric. Sensation grossly intact, Cranial nerves II-XII intact PULSES: 2+ radial, 2+ carotid Rest of the exam is non contributory - Patient Status Disposition: Home, Self-Care Condition: Good Functional capacity at discharge: independent ambulation Overall status at discharge: patient is back to baseline - Discharge Instructions Instructions: Meclizine (By mouth), Lidocaine (On the skin), Chest Pain (DC) Follow Up With: Anamika Gtz CNP [Primary Care Provider] - 05/23/18 1:00 pm () Aure Johnson MD [Partnered Physician] - 06/14/18 8:10 am - Diet and Activity Activity: increase activity as tolerated Diet: advance to your usual diet
--- NOTE | 2018-05-17 12:52 | Cardiology Consult Note ---
Date of Encounter: 05/17/18 Time of Encounter: 10:00 Assessment and Plan (1) Chest pain Status: Acute atypical, no ischemic changes, neg trop, nl EF likely related to uncontrolled HTN, can't r/o vasospasm - BP ctr per primary team - if recurrent, consider cardizem - c/w ASA, statin Qualifiers: Chest pain type: unspecified Qualified Code(s): R07.9 - Chest pain, unspecified (2) Hypertension Status: Chronic need better ctr. consider cardizem Qualifiers: Hypertension type: essential hypertension Qualified Code(s): I10 - Es sential (primary) hypertension (3) PVCs (premature ventricular contractions) Status: Acute asymptomatic, improved on BB c/w toprol 100 for now. If need cardizem in the future, will taper off toprol. f/u cardiology clinic (4) Diabetes mellitus Status: Chronic Qualifiers: Diabetes mellitus type: type 2 Diabetes mellitus longterm insulin use: with terminologist use Diabetes mellitus complication status: with neurologic complications Diabetes mellitus complication detail: with polyneuropathy Qualified Code(s): E11.42 - Type 2 diabetes mellitus with diabetic polyneuropathy; Z79.4 - intermediate designer (current) use of insulin; Z79.4 - intermediate designer (current) use of insulin; Z79.4 - FDC (current) use of insulin; Z79.4 - intermediate designer (current) use of insulin Discussion w patient/family: The assessment and plan as outlined above was discussed with the patient and/or family members who expressed understanding and agreement. All questions were answered. Thank you for involving us in the care of your patient. Please call with any questions. History of Present Illness Consult date: 05/16/18 Requesting physician: Alverto Peters Consult reason: chest pain Chief complaint: chest pain History of present illness: Mr. Camacho is a 62 year old male ho DM, HTN, HLD, tabacco use. P/w intermittent resting cp and dizziness wks. No dyspnea, syncope, palpitations, LE edema. Associated with BP 189/74. ECG non-ischemic, tele no VT/SVT, trop neg. CP and dizziness resolved after admission with improved BP. TTE [id number] LVEF 70-75%, hyperdynamic LV. Mild concentric left ventricular hypertrophy. Mild left ventricular diastolic dysfunction. Normal right ventricular structure and function. No significant valvular dysfunction. No pulmonary hypertension. Mild ascending aorta dilatation. [id number] Pharm SPECT neg for ischemia or infarct, EF 65%. [id number] Holter frequent PVCs, occasiona breif NSVT 3 beats, two breif PSVT longest 18 beats Past Med Surg Social Fam HX - Past Medical History Medical history: diabetes, hypertension, TIA Additional medical history: TIA X2 Psychiatric history: anxiety - Past Surgical History Surgical History: appendectomy, cholecystectomy Additional surgical history: BACK SURGERY , 2 KNEE REPLACEMENT , HIP REPLACEMENT - Social History Smoking Status: Former smoker Smokeless Tobacco Status: Yes Alcohol use: none Drug use: none - Family History Mother Living Status: Hx Family Cardiac Disorders: Yes Hx Family Endocrine Disorder: Yes (DM) Father Living Status: Hx Family Cardiac Disorders: Yes Hx Family Endocrine Disorder: Yes (DM) Medications and Allergies Atorvastatin [Lipitor] 40 mg PO DAILY 05/20/15 [History] Citalopram [CeleXA] 40 mg PO DAILY 05/20/15 [History] Cyclobenzaprine [Flexeril] 10 mg PO TID 05/20/15 [History] Gabapentin [Neurontin] 1,200 mg PO BID 05/20/15 [History] Lisinopril [Zestril] 20 mg PO BID 05/20/15 [History] Insulin NPH Hum/Reg Insulin Hm [Novolin 70-30 100 Unit/ml Vial] 100 unit SQ BID 03/07/17 [History] Insulin Regular, Human [Novolin R] 0 - 35 unit IJ TID PRN 03/07/17 [History] Aspirin Enteric Coated [Aspirin EC] 81 mg PO DAILY #30 tablet.dr 03/08/17 [Rx] Metoclopramide [Reglan] 10 mg PO Q6HR PRN #30 tablet 03/08/17 [Rx] Metoprolol Succinate [Toprol Xl] 100 mg PO DAILY 10/22/17 [History] Oxycodone HCl/Acetaminophen [Percocet 10-325 mg Tablet] 2 tab PO Q8HR PRN 10/22/17 [History] Omeprazole [PriLOSEC] 40 mg PO DAILY 05/16/18 [History] Lidocaine Patch [Lidoderm 5% patch] 1 each TP DAILY #5 adh..patch 05/17/18 [Rx] Meclizine [Antivert] 12.5 mg PO TID PRN #45 tablet 05/17/18 [Rx] Allergy/AdvReac Type Severity Reaction Status Date / Time Enoxaparin [From Lovenox] AdvReac Rash Verified 03/07/17 15:04 All Systems Review: The remainder of the systems were reviewed and are negative - Cardiovascular Cardiovascular: as per HPI - Neurological Neurological: dizziness - Hematological/Lymphatic Hematologic/Lymphatic: no easy bleeding Physical Examination Vital Signs, Last 4 Hours Temp Pulse Resp BP Pulse Ox 05/17/18 11:04 97.8 F 68 18 145/88 94 Other: General: NAD, AAO, cogent HEENT: anicteric Neck: no JVD, no bruits Chest: CTA B/L, no W/R/C Heart: RRR, S1/S2, no S3/S4, no M/G/R Abdominal: BS +, soft, ND, NT Peripheral Pulses: radial pulse 2+ B/L, DP 2+ B/L Skin/Extremities: no cyanosis, no LE edema Neurological: grossly non-focal. Results 05/16/18 04:42 05/17/18 03:22 Lab Results 05/17/18 03:22 Sodium 136 Potassium 3.9 Chloride 102 Carbon Dioxide 26 BUN 19 Creatinine 0.91 Glucose 337 H Calcium 9.8 - Imaging and Cardiology Chest Xray: report reviewed Stress Test: report reviewed Echo: image reviewed Holter: report reviewed - EKG Interpretation EKG results cardiology: personally reviewed Consult Discharge Plan - Plan Instructions: Meclizine (By mouth), Lidocaine (On the skin), Chest Pain (DC) Referrals: Anamika tGz CNP [Primary Care Provider] - 05/23/18 1:00 pm () Aure Johnson MD [Partnered Physician] - 06/14/18 8:10 am Prescriptions: Lidocaine Patch [Lidoderm 5% patch] 1 each TP DAILY #5 adh..patch Meclizine [Antivert] 12.5 mg PO TID PRN #45 tablet PRN Reason: Dizziness
--- NOTE | 2018-05-18 16:50 | Electrocardiograph Report ---
[address] [address] Test Date: 2018-05-15 Pat Name: Sam Camacho Department: [id number] Room: 3B24 Gender: M [employer] Dispatcher: : [id number] Requested By: Tremayne Sanchez Order Number: [id number] Reading MD: Alfredito Lomas Measurements Intervals [place] Rate: 80 P: 43 WI: 180 QRS: -23 QRSD: 129 T: 74 QT: 379 QTc: 415 Interpretive Statements SINUS RHYTHM BORDERLINE LEFT AXIS DEVIATION MODERATE INTRAVENTRICULAR CONDUCTION DELAY Electronically Signed On 05-18-2018 16:49:30 EST by Alfredito Lomas
== END 2018-05-17 12:37 | disposition home or self-care (01) ==
LOC: 3BNU 22:20 → EMEROOARM 22:20 → SUATTDRO 05-16 00:27 → 3BNU 05-16 02:00
PROVIDERS: ADMIT Family Medicine; ATTEND Internal Medicine

== ENCOUNTER 2019-08-26 14:47 | Observation (INO) ==
[2019-08-26 15:54] LABS: INR 0.9; Prothrombin Time 10.2 Seconds (9.4-12.1)
[2019-08-26 15:57] LABS: Activated Partial Thrombo Time 23.2 Seconds (26.0-36.0)
[2019-08-26] MEDS ORDERED: 0.9 % Sodium Chloride 1,000 ML IVC STA (16:25)
[2019-08-26 16:53] LABS: Basophils # 0.1 K/mcL (0.0-0.2); Basophils % 0.8 %; Eosinophils # 0.1 K/mcL (0.0-0.6); Hematocrit 42.3 % (37.5-50.1); Hemoglobin 14.3 g/dL (12.9-16.9); Immature Granulocytes % 0.7 % (0-4); Lymphocytes # 2.1 K/mcL (0.6-4.6); Lymphocytes % 15.2 %; Mean Corpuscular HGB Conc 33.8 g/dL (31.6-35.5); Mean Corpuscular Hemoglobin 32.1 pg (28.0-33.3); Mean Corpuscular Volume 95.1 fL (83.0-100.0); Mean Platelet Volume 9.8 fL (9.4-12.4); Monocytes % 7.5 %; Neutrophils # 10.3 K/mcL (1.6-8.9); Platelet Count 301 K/mcL (140-400); Red Blood Count 4.45 M/mcL (4.19-5.50); Red Cell Distribution Width 13.1 % (11.5-14.5); Segmented Neutrophils % 74.8 %; White Blood Count 13.8 K/mcL (4.3-11.1)
[2019-08-26 16:56] LABS: Alanine Aminotransferase 52 Units/L (7-52); Albumin 4.3 g/dL (3.5-5.7); Albumin/Globulin Ratio 1.7 (1.1-2.2); Alkaline Phosphatase 116 Units/L (34-104); Aspartate Amino Transferase 60 Units/L (13-39); BUN/Creatinine Ratio 16 (6-26); Bilirubin,Indirect 0.3 mg/dL (0.0-1.0); Bilirubin,Total 0.3 mg/dL (0.3-1.0); Blood Urea Nitrogen 44 mg/dL (8-23); C-Reactive Protein 14 mg/L (Less than 10); Calcium 10.2 mg/dL (8.6-10.3); Carbon Dioxide 22 mEq/L (23-29); Chloride 99 mEq/L (98-107); Ferritin 303 ng/mL (20-250); Globulin 2.5 g/dL (2.4-3.5); Glucose 129 mg/dL (70-105); Lactate Dehydrogenase 231 Units/L (140-271); Magnesium 2.2 mg/dL (1.6-2.6); Osmolality,Calculated 293 (280-300); Phosphorous 4.7 mg/dL (2.7-4.5); Potassium 4.6 mEq/L (3.5-5.1); Sodium 135 mEq/L (136-145); Total Protein 6.8 g/dL (6.4-8.9); Troponin I < 0.03 ng/mL (< 0.04); eGFR For African Americans 29 (> 60); eGFR For Non-African Americans 24 (> 60)
[2019-08-26 17:02] LABS: Bilirubin,Urine Negative (Negative); Blood,Urine Negative (Negative); Clarity,Urine Cloudy (Clear); Color,Urine Yellow (Yellow); Glucose,Urine (UA) >=1000 mg/dL (Normal); Ketones,Urine Negative (Negative); Leukocyte Esterase,Urine Moderate (Negative); Nitrite,Urine Negative (Negative); PH,Urine 5.5 pH Units (5.0-8.0); Protein,Urine Trace mg/dL (Neg-Trace); Specific Gravity,Urine > 1.030 (1.010-1.025); Urobilinogen,Urine Normal (Normal)
[2019-08-26 17:04] LABS: Bacteria,Urine Few per hpf (None-Few); Hyaline Casts,Urine None Seen per lpf (None-Few); RBC,Urine 0-3 per hpf (0-3); Squamous Epithelial Cell,Urine Many per lpf (None-Few); WBC,Urine TNTC per hpf (0-3)
[2019-08-26] MEDS ORDERED: 0.9 % Sodium Chloride 1,000 ML IVC ONE (17:17)
[2019-08-26] MEDS ORDERED: cefTRIAXone 1,000 MG in Water for inj. (sterile) 10 ML IVP ONE (18:15)
[2019-08-26] MEDS ORDERED: Naloxone 0.4 MG/ML INJ IVP PRN (20:48)
[2019-08-26] MEDS ORDERED: *HR* Dextrose 50 % in Water (Syg) 50 ML SYRINGE IVP PRN (21:50)
[2019-08-26] MEDS ORDERED: D5% in Water 1,000 ML IVC PRN (21:50)
[2019-08-26] MEDS ORDERED: Dextrose Gel 15 GM/37.5 ML TUBE PO PRN ×2 (21:50)
[2019-08-26] MEDS ORDERED: hydrALAZINE 10 MG TABLET PO PRN (21:54)
[2019-08-26] MEDS ORDERED: Diclofenac Sodium (DR) 75 MG TABLET.DR PO SCH (22:00)
[2019-08-26] MEDS ORDERED: Gabapentin 400 MG CAPSULE PO SCH (22:00)
[2019-08-26] MEDS: Gabapentin 300 MG CAPSULE PO SCH (22:43)
[2019-08-26] MEDS: Aspirin Enteric Coated 81 MG Tablet PO SCH (22:43)
[2019-08-26] MEDS: Acetaminophen 325 MG TABLET PO PRN (22:43)
[2019-08-26] MEDS: 0.9 % Sodium Chloride 1,000 ML IVC SCH (22:43)
[2019-08-26] MEDS: Insulin LISPRO 300 UNITS/3 ML VIAL SQ SCH (22:53)
[2019-08-27] MEDS ORDERED: Acetaminophen 325 MG TABLET PO SCH
[2019-08-27 03:44] LABS: Hemoglobin 12.8 g/dL (12.9-16.9); Mean Corpuscular HGB Conc 33.7 g/dL (31.6-35.5); Mean Corpuscular Hemoglobin 32.2 pg (28.0-33.3); Mean Corpuscular Volume 95.5 fL (83.0-100.0); Mean Platelet Volume 9.9 fL (9.4-12.4); Platelet Count 237 K/mcL (140-400); Red Blood Count 3.98 M/mcL (4.19-5.50); Red Cell Distribution Width 12.9 % (11.5-14.5); White Blood Count 10.4 K/mcL (4.3-11.1)
[2019-08-27 04:03] LABS: Calcium 9.2 mg/dL (8.6-10.3); Magnesium 1.9 mg/dL (1.6-2.6); Potassium 4.8 mEq/L (3.5-5.1)
[2019-08-27] MEDS: Metoprolol XL (24 HR) Succ 50 MG TAB.ER.24H PO SCH (08:02)
[2019-08-27] MEDS: BuPROPion SR (12 HR) 150 MG TABLET PO SCH (08:02)
[2019-08-27] MEDS: Gabapentin 300 MG CAPSULE PO SCH ×2 (08:03→21:47)
[2019-08-27] MEDS: Aspirin Enteric Coated 81 MG Tablet PO SCH (08:03)
[2019-08-27] MEDS: Insulin LISPRO 300 UNITS/3 ML VIAL SQ SCH ×4 (08:12→21:48)
[2019-08-27] MEDS ORDERED: Gabapentin 400 MG CAPSULE PO SCH (09:00)
[2019-08-27] MEDS: 0.9 % Sodium Chloride 1,000 ML IVC SCH (12:13)
[2019-08-27] MEDS ORDERED: *HR* OxyCODONE/APAP 10/325 TABLET PO PRN ×2 (13:19→16:07)
[2019-08-27 15:42] LABS: Protein/Creatinine Ratio,Urine 0.14 mg/mg (0.00-0.20); Sodium, Urine 37.9 mEq/L
[2019-08-27] MEDS: *HR* Insulin Regular U-500 500 UNIT/ML SQ SCH (18:02)
[2019-08-27] MEDS ORDERED: INSULIN REGULAR U SQ SCH (21:00)
[2019-08-27] MEDS: *HR* Heparin 5,000 UNIT/ML VIAL SQ SCH (21:47)
[2019-08-28] MEDS: 0.9 % Sodium Chloride 1,000 ML IVC SCH ×2 (00:03→12:26)
[2019-08-28] MEDS: Acetaminophen 325 MG TABLET PO PRN (00:04)
[2019-08-28] MEDS: *HR* Heparin 5,000 UNIT/ML VIAL SQ SCH (04:43)
[2019-08-28 06:03] LABS: Basophils # 0.1 K/mcL (0.0-0.2); Eosinophils # 0.3 K/mcL (0.0-0.6); Eosinophils % 4.1 %; Hematocrit 36.4 % (37.5-50.1); Hemoglobin 12.5 g/dL (12.9-16.9); Immature Granulocytes % 0.3 % (0-4); Lymphocytes # 2.1 K/mcL (0.6-4.6); Lymphocytes % 30.4 %; Mean Corpuscular HGB Conc 34.3 g/dL (31.6-35.5); Mean Corpuscular Hemoglobin 32.5 pg (28.0-33.3); Mean Corpuscular Volume 94.5 fL (83.0-100.0); Monocytes # 0.6 K/mcL (0.0-1.3); Monocytes % 8.1 %; Platelet Count 224 K/mcL (140-400); Red Blood Count 3.85 M/mcL (4.19-5.50); Red Cell Distribution Width 12.9 % (11.5-14.5); Segmented Neutrophils % 56.1 %
[2019-08-28 06:19] LABS: BUN/Creatinine Ratio 29 (6-26); Blood Urea Nitrogen 27 mg/dL (8-23); Calcium 9.4 mg/dL (8.6-10.3); Carbon Dioxide 25 mEq/L (23-29); Chloride 105 mEq/L (98-107); Glucose 137 mg/dL (70-105); Osmolality,Calculated 293 (280-300); Potassium 4.6 mEq/L (3.5-5.1); Sodium 138 mEq/L (136-145); eGFR For African Americans > 60 (> 60); eGFR For Non-African Americans > 60 (> 60)
[2019-08-28] MEDS: BuPROPion SR (12 HR) 150 MG TABLET PO SCH (08:03)
[2019-08-28] MEDS: Gabapentin 300 MG CAPSULE PO SCH (08:03)
[2019-08-28] MEDS: Aspirin Enteric Coated 81 MG Tablet PO SCH (08:03)
[2019-08-28] MEDS: Metoprolol XL (24 HR) Succ 50 MG TAB.ER.24H PO SCH (08:04)
[2019-08-28] MEDS: *HR* Insulin Regular U-500 500 UNIT/ML SQ SCH (08:04)
[2019-08-28] MEDS: Insulin LISPRO 300 UNITS/3 ML VIAL SQ SCH ×2 (08:33→12:27)
[2019-08-28] MEDS ORDERED: *HR* OxyCODONE/APAP 10/325 TABLET PO PRN (11:42)
[2019-08-28 12:22] VITALS: BP 135/76
== END 2019-08-28 17:43 | disposition home or self-care (01) ==
LOC: 2NENU 14:47 → EMEROOARM 14:47 → 2NENU 20:40
PROVIDERS: ADMIT Internal Medicine; ATTEND Internal Medicine

== ENCOUNTER 2020-11-11 14:33 | Inpatient (IN) ==
[2020-11-11] MEDS ORDERED: Ondansetron 4 MG/2 ML VIAL IVP PRN (17:38)
[2020-11-11] MEDS ORDERED: Naloxone 0.4 MG/ML INJ IVP PRN (17:38)
[2020-11-11] MEDS ORDERED: Dextrose Gel 15 GM/37.5 ML TUBE PO PRN ×2 (17:40)
[2020-11-11] MEDS ORDERED: D5% in Water 1,000 ML IVC PRN (17:40)
[2020-11-11] MEDS ORDERED: *HR* Dextrose 50 % in Water (Vial) 50 ML VIAL IVP PRN (17:40)
[2020-11-11] MEDS ORDERED: Morphine Sulfate 2 MG/ML SYRINGE IVP ONE (17:59)
[2020-11-11] MEDS: 0.9 % Sodium Chloride 1,000 ML IVC SCH (18:38)
[2020-11-11] MEDS: *HR* Heparin 5,000 UNIT/ML VIAL SQ SCH (18:43)
[2020-11-11 21:02] LABS: Basophils # 0.1 K/mcL (0.0-0.2); Basophils % 0.6 %; Eosinophils # 0.1 K/mcL (0.0-0.6); Eosinophils % 0.5 %; Hematocrit 38.5 % (37.5-50.1); Hemoglobin 13.5 g/dL (12.9-16.9); Immature Granulocytes % 0.9 % (0-4); Lymphocytes # 1.4 K/mcL (0.6-4.6); Lymphocytes % 12.5 %; Mean Corpuscular HGB Conc 35.1 g/dL (31.6-35.5); Mean Corpuscular Hemoglobin 32.9 pg (28.0-33.3); Mean Corpuscular Volume 93.9 fL (83.0-100.0); Mean Platelet Volume 9.5 fL (9.4-12.4); Monocytes # 0.8 K/mcL (0.0-1.3); Monocytes % 7.1 %; Neutrophils # 8.6 K/mcL (1.6-8.9); Platelet Count 258 K/mcL (140-400); Red Cell Distribution Width 13.1 % (11.5-14.5); Segmented Neutrophils % 78.4 %; White Blood Count 10.9 K/mcL (4.3-11.1)
[2020-11-11 21:09] LABS: Bacteria,Urine Few per hpf (None-Few); Bilirubin,Urine Negative (Negative); Blood,Urine Negative (Negative); Clarity,Urine Clear (Clear); Color,Urine Light-Yellow (Yellow); Glucose,Urine (UA) >=1000 mg/dL (Normal); Hyaline Casts,Urine Few per lpf (None Seen); Ketones,Urine Negative (Negative); Leukocyte Esterase,Urine Large (Negative); Mucus,Urine Few per lpf (None-Few); Nitrite,Urine Negative (Negative); PH,Urine 5.5 pH Units (5.0-8.0); Protein,Urine Trace mg/dL (Neg-Trace); Specific Gravity,Urine 1.024 (1.010-1.025); Squamous Epithelial Cell,Urine Few per hpf (None-Few); Urobilinogen,Urine Normal (Normal); WBC,Urine 15-30 per hpf (0-3)
[2020-11-11 21:21] LABS: Calcium 9.5 mg/dL (8.6-10.3); Potassium 5.2 mEq/L (3.5-5.1)
[2020-11-11 22:54] LABS: Estimated Average Glucose 255 mg/dl; Hemoglobin A1C 10.5 %
[2020-11-11] MEDS: *HR* OxyCODONE/APAP 10/325 TABLET PO SCH (23:09)
[2020-11-12 03:12] LABS: Basophils # 0.1 K/mcL (0.0-0.2); Basophils % 0.7 %; Eosinophils # 0.1 K/mcL (0.0-0.6); Eosinophils % 0.7 %; Hematocrit 38.8 % (37.5-50.1); Hemoglobin 13.3 g/dL (12.9-16.9); Lymphocytes # 1.7 K/mcL (0.6-4.6); Lymphocytes % 15.9 %; Mean Corpuscular HGB Conc 34.3 g/dL (31.6-35.5); Mean Corpuscular Volume 93.3 fL (83.0-100.0); Mean Platelet Volume 9.5 fL (9.4-12.4); Monocytes # 0.7 K/mcL (0.0-1.3); Monocytes % 6.9 %; Platelet Count 244 K/mcL (140-400); Red Blood Count 4.16 M/mcL (4.19-5.50); Red Cell Distribution Width 13.1 % (11.5-14.5); Segmented Neutrophils % 74.8 %; White Blood Count 10.7 K/mcL (4.3-11.1)
[2020-11-12 03:40] LABS: Calcium 9.3 mg/dL (8.6-10.3); Potassium 4.3 mEq/L (3.5-5.1)
[2020-11-12] MEDS: 0.9 % Sodium Chloride 1,000 ML IVC SCH ×2 (05:06→14:22)
[2020-11-12] MEDS: *HR* Heparin 5,000 UNIT/ML VIAL SQ SCH ×2 (05:07→16:49)
[2020-11-12] MEDS ORDERED: Insulin LISPRO 300 UNITS/3 ML VIAL SUBQ SCH (07:30)
[2020-11-12] MEDS: *HR* Insulin Regular U-500 500 UNIT/ML SUBQ SCH ×3 (08:10→16:48)
[2020-11-12] MEDS: Aspirin 81 MG TAB.CHEW PO SCH (08:21)
[2020-11-12] MEDS: *HR* OxyCODONE/APAP 10/325 TABLET PO SCH ×2 (08:21→16:48)
[2020-11-12] MEDS: Metoprolol XL (24 HR) Succ 50 MG TAB.ER.24H PO SCH (08:22)
[2020-11-12] MEDS: Pregabalin 75 MG CAPSULE PO SCH ×2 (08:22→21:29)
[2020-11-12] MEDS: cefTRIAXone 1,000 MG in Water for inj. (sterile) 10 ML IVP SCH (08:22)
[2020-11-12] MEDS ORDERED: Metoclopramide 10 MG/2 ML VIAL IVP PRN (14:33)
[2020-11-13] MEDS: 0.9 % Sodium Chloride 1,000 ML IVC SCH (00:02)
[2020-11-13] MEDS: *HR* OxyCODONE/APAP 10/325 TABLET PO SCH ×2 (00:02→08:01)
[2020-11-13] MEDS: *HR* Heparin 5,000 UNIT/ML VIAL SQ SCH (05:25)
[2020-11-13] MEDS: *HR* Insulin Regular U-500 500 UNIT/ML SUBQ SCH ×2 (08:00→12:10)
[2020-11-13 08:02] LABS: Hematocrit 39.8 % (37.5-50.1); Hemoglobin 13.6 g/dL (12.9-16.9); Mean Corpuscular HGB Conc 34.2 g/dL (31.6-35.5); Mean Corpuscular Hemoglobin 32.1 pg (28.0-33.3); Mean Corpuscular Volume 93.9 fL (83.0-100.0); Mean Platelet Volume 9.6 fL (9.4-12.4); Platelet Count 237 K/mcL (140-400); Red Blood Count 4.24 M/mcL (4.19-5.50); White Blood Count 6.9 K/mcL (4.3-11.1)
[2020-11-13] MEDS: Metoprolol XL (24 HR) Succ 50 MG TAB.ER.24H PO SCH (08:02)
[2020-11-13] MEDS: Aspirin 81 MG TAB.CHEW PO SCH (08:02)
[2020-11-13] MEDS: Pregabalin 75 MG CAPSULE PO SCH (08:03)
[2020-11-13] MEDS: cefTRIAXone 1,000 MG in Water for inj. (sterile) 10 ML IVP SCH (08:04)
[2020-11-13 08:27] LABS: BUN/Creatinine Ratio 24 (6-26); Blood Urea Nitrogen 28 mg/dL (8-23); Calcium 9.8 mg/dL (8.6-10.3); Carbon Dioxide 28 mEq/L (23-29); Chloride 106 mEq/L (98-107); Glucose 69 mg/dL (70-105); Osmolality,Calculated 294 (280-300); Potassium 4.1 mEq/L (3.5-5.1); Sodium 140 mEq/L (136-145); eGFR For African Americans > 60 (> 60); eGFR For Non-African Americans > 60 (> 60)
[2020-11-13 11:34] VITALS: BP 126/84
[2020-11-13] MEDS ORDERED: *HR* OxyCODONE/APAP 10/325 TABLET PO SCH (16:00)
== END 2020-11-13 14:30 | disposition home or self-care (01) | DRG 638 ==
LOC: 2NENU → SUATTDRO 16:27
PROVIDERS: ADMIT Internal Medicine; ATTEND Internal Medicine

== ENCOUNTER 2021-03-18 06:31 | Inpatient (IN) ==
[~2021-03-18 06:31] MED LIST: Acetaminophen IV 1,000 MG/100 ML BAG IVPB ONE; Famotidine 20 MG/2 ML VIAL IVP ONE
[2021-03-18] MEDS ORDERED: CeFAZolin Syr 3,000MG/30 ML 3,000 MG/30 ML SYRINGE IVPB ONE (06:55)
[2021-03-18] MEDS ORDERED: Ringers Solution, Lactated 1,000 ML IVC SCH (07:00)
[2021-03-18] MEDS ORDERED: Vancomycin 1,000 MG VIAL ONE (07:00)
[2021-03-18] MEDS ORDERED: Ondansetron 4 MG/2 ML VIAL ONE ×2 (07:19→08:55)
[2021-03-18] MEDS ORDERED: *HR* Propofol 200 MG/20 ML VIAL IVP ONE ×2 (07:19)
[2021-03-18] MEDS ORDERED: Lidocaine -MPF 2% 5 ML VIAL ONE (07:19)
[2021-03-18] MEDS ORDERED: *HR* Succinylcholine 200 MG/10 ML VIAL IVP ONE (07:19)
[2021-03-18] MEDS ORDERED: *HR* Midazolam HCl 2 MG/2 ML VIAL ONE (07:19)
[2021-03-18] MEDS ORDERED: *HR* FentaNYL (PF) 100 MCG/2 ML VIAL ONE (07:19)
[2021-03-18] MEDS ORDERED: Lidocaine -MPF 4% 5 ML AMPUL ONE (07:20)
[2021-03-18] MEDS ORDERED: *HR* HYDROmorphone PF 0.5 MG/0.5 ML SYRINGE IVP PRN (07:32)
[2021-03-18] MEDS ORDERED: Ondansetron 4 MG/2 ML VIAL IVP PRN ×2 (07:32→16:02)
[2021-03-18] MEDS ORDERED: Dexmedetomidine HCl 400 MCG/100 ML MLS IVC ONE (07:33)
[2021-03-18] MEDS ORDERED: *HR* Magnesium Sulfate 1 GM/2 ML VIAL ONE (07:39)
[2021-03-18] MEDS ORDERED: *HR* Methadone 5 MG TABLET PO ONE (07:45)
[2021-03-18] MEDS ORDERED: Polymyxin B Sulfate 500,000 UNIT, Sodium Chloride IRRigation 1,000 ML IR ONE (08:15)
[2021-03-18] MEDS ORDERED: EPHEDrine 50 MG/ML VIAL ONE (08:56)
[2021-03-18] MEDS ORDERED: *HR* Norepinephrine 4 MG/4 ML VIAL IVC ONE (09:13)
[2021-03-18] MEDS ORDERED: Albumin Human 5% 25.0 GM/500 ML IV.SOLN ONE (12:48)
[2021-03-18] MEDS ORDERED: Naloxone 0.4 MG/ML INJ IVP PRN (16:02)
[2021-03-18] MEDS ORDERED: Acetaminophen 325 MG TABLET PO PRN (16:02)
[2021-03-18] MEDS ORDERED: Nitroglycerin 0.4 MG TAB.SUBL SL PRN (16:02)
[2021-03-18] MEDS ORDERED: CeFAZolin Syr 3,000MG/30 ML 3,000 MG/30 ML SYRINGE IVPB SCH (16:02)
[2021-03-18] MEDS: Ringers Solution, Lactated 1,000 ML IVC SCH (16:43)
[2021-03-18] MEDS: *HR* HYDROcodone/Acet 5/325 mg TABLET PO PRN (17:10)
[2021-03-18] MEDS: SODIUM CHLORIDE IVPB SCH (17:34)
[2021-03-18] MEDS: CEFAZOLIN IVPB SCH (17:34)
[2021-03-18] MEDS: [UNRECOGNIZED DRUG - REMARK] PO SCH (20:34)
[2021-03-18] MEDS: Pregabalin 50 MG CAPSULE PO SCH (20:41)
[2021-03-18] MEDS: *HR* OxyCODONE Immed Rel 5 MG TABLET PO PRN (20:41)
[2021-03-19] MEDS: SODIUM CHLORIDE IVPB SCH
[2021-03-19] MEDS: CEFAZOLIN IVPB SCH
[2021-03-19] MEDS: *HR* HYDROcodone/Acet 5/325 mg TABLET PO PRN
[2021-03-19] MEDS: Ringers Solution, Lactated 1,000 ML IVC SCH ×2 (02:14→11:14)
[2021-03-19] MEDS: lisinopriL 10 MG TABLET PO SCH (08:09)
[2021-03-19] MEDS: Metoprolol XL (24 HR) Succ 50 MG TAB.ER.24H PO SCH (08:09)
[2021-03-19] MEDS: Pregabalin 50 MG CAPSULE PO SCH ×2 (08:10→21:07)
[2021-03-19] MEDS: *HR* OxyCODONE Immed Rel 5 MG TABLET PO PRN ×3 (08:10→17:00)
[2021-03-19] MEDS: Aspirin Enteric Coated 81 MG Tablet PO SCH (08:10)
[2021-03-19] MEDS: Fenofibrate 54 MG TABLET PO SCH (08:11)
[2021-03-19 09:56] LABS: Basophils % 0.3 %; Eosinophils % 0.2 %; Hematocrit 34.1 % (37.5-50.1); Hemoglobin 11.5 g/dL (12.9-16.9); Immature Granulocytes % 0.3 % (0-4); Lymphocytes # 1.5 K/mcL (0.6-4.6); Lymphocytes % 13.6 %; Mean Corpuscular HGB Conc 33.7 g/dL (31.6-35.5); Mean Corpuscular Hemoglobin 31.7 pg (28.0-33.3); Mean Corpuscular Volume 93.9 fL (83.0-100.0); Monocytes # 0.9 K/mcL (0.0-1.3); Monocytes % 8.1 %; Neutrophils # 8.5 K/mcL (1.6-8.9); Platelet Count 241 K/mcL (140-400); Red Blood Count 3.63 M/mcL (4.19-5.50); Red Cell Distribution Width 12.8 % (11.5-14.5); Segmented Neutrophils % 77.5 %; White Blood Count 10.9 K/mcL (4.3-11.1)
[2021-03-19 10:16] LABS: Albumin 3.8 g/dL (3.5-5.7); Albumin/Globulin Ratio 1.5 (1.1-2.2); Bilirubin,Total 0.5 mg/dL (0.3-1.0); Globulin 2.5 g/dL (2.4-3.5); Potassium 4.5 mEq/L (3.5-5.1); Total Protein 6.3 g/dL (6.4-8.9)
[2021-03-19] MEDS ORDERED: *HR* Dextrose 50 % in Water (Syg) 50 ML SYRINGE IVP PRN ×2 (11:28→12:30)
[2021-03-19] MEDS ORDERED: D5% in Water 1,000 ML IVC PRN ×2 (11:28→12:30)
[2021-03-19] MEDS ORDERED: Dextrose Gel 15 GM/37.5 ML TUBE PO PRN ×4 (11:28→12:30)
[2021-03-19] MEDS: Insulin LISPRO 300 UNITS/3 ML VIAL SUBQ SCH ×3 (16:58→21:08)
[2021-03-19] MEDS: [UNRECOGNIZED DRUG - REMARK] PO SCH (21:09)
[2021-03-20] MEDS: *HR* OxyCODONE Immed Rel 5 MG TABLET PO PRN ×4 (02:14→22:53)
[2021-03-20] MEDS: Fenofibrate 54 MG TABLET PO SCH (07:56)
[2021-03-20] MEDS: Metoprolol XL (24 HR) Succ 50 MG TAB.ER.24H PO SCH (07:56)
[2021-03-20] MEDS: Aspirin Enteric Coated 81 MG Tablet PO SCH (07:56)
[2021-03-20] MEDS: lisinopriL 10 MG TABLET PO SCH (07:57)
[2021-03-20] MEDS: Pregabalin 50 MG CAPSULE PO SCH ×2 (07:57→22:52)
[2021-03-20] MEDS: Insulin LISPRO 300 UNITS/3 ML VIAL SUBQ SCH ×4 (07:58→22:57)
[2021-03-20] MEDS: *HR* Insulin Regular U-500 500 UNIT/ML SUBQ SCH (13:44)
[2021-03-20 14:56] LABS: BUN/Creatinine Ratio 20 (6-26); Blood Urea Nitrogen 27 mg/dL (8-23); Calcium 9.9 mg/dL (8.6-10.3); Carbon Dioxide 31 mEq/L (23-29); Chloride 96 mEq/L (98-107); Glucose 386 mg/dL (70-105); Osmolality,Calculated 299 (280-300); Potassium 4.5 mEq/L (3.5-5.1); Sodium 134 mEq/L (136-145); eGFR For African Americans > 60 (> 60); eGFR For Non-African Americans 52 (> 60)
[2021-03-20] MEDS ORDERED: *HR* Insulin Regular U-500 500 UNIT/ML SUBQ SCH (17:00)
[2021-03-20] MEDS: [UNRECOGNIZED DRUG - REMARK] PO SCH (22:57)
[2021-03-21 03:17] LABS: BUN/Creatinine Ratio 21 (6-26); Blood Urea Nitrogen 26 mg/dL (8-23); Calcium 10.1 mg/dL (8.6-10.3); Carbon Dioxide 30 mEq/L (23-29); Chloride 98 mEq/L (98-107); Glucose 195 mg/dL (70-105); Osmolality,Calculated 290 (280-300); Sodium 135 mEq/L (136-145); eGFR For African Americans > 60 (> 60); eGFR For Non-African Americans > 60 (> 60)
[2021-03-21] MEDS: *HR* OxyCODONE Immed Rel 5 MG TABLET PO PRN ×3 (04:06→13:19)
[2021-03-21] MEDS: lisinopriL 10 MG TABLET PO SCH (07:52)
[2021-03-21] MEDS: Metoprolol XL (24 HR) Succ 50 MG TAB.ER.24H PO SCH (07:52)
[2021-03-21] MEDS: Pregabalin 50 MG CAPSULE PO SCH (07:53)
[2021-03-21] MEDS: Fenofibrate 54 MG TABLET PO SCH (07:53)
[2021-03-21] MEDS: Aspirin Enteric Coated 81 MG Tablet PO SCH (07:53)
[2021-03-21] MEDS: *HR* Insulin Regular U-500 500 UNIT/ML SUBQ SCH (07:58)
[2021-03-21] MEDS: Insulin LISPRO 300 UNITS/3 ML VIAL SUBQ SCH (07:59)
[2021-03-21] MEDS ORDERED: Insulin LISPRO 300 UNITS/3 ML VIAL SUBQ SCH ×2 (08:27)
[2021-03-21] MEDS ORDERED: *HR* Insulin Regular U-500 500 UNIT/ML SUBQ SCH ×2 (12:00→17:00)
[2021-03-21 14:23] LABS: Influenza A PCR Negative (Negative); Influenza B PCR Negative (Negative); Resp. Syncytial Virus PCR Negative (Negative)
[2021-03-21 14:35] LABS: SARS-CoV-2 by PCR (In House) Negative (Negative)
[2021-03-21 15:08] VITALS: BP 105/64; PULSE 81; TEMP 98.4; O2SAT 92
== END 2021-03-21 16:08 | DRG 455 ==
LOC: SDCAOSI 06:31 → 4WAOSI 06:31
PROVIDERS: ADMIT Orthopaedic Surgery Orthopaedic Surgery of the Spine; ATTEND Orthopaedic Surgery Orthopaedic Surgery of the Spine

== ENCOUNTER 2021-03-23 21:51 | Inpatient (IN) ==
[2021-03-23] MEDS ORDERED: Gadolinium Contrast Agent (WT Based) IV PRN (22:29)
[2021-03-23] MEDS ORDERED: Morphine Sulfate 2 MG/ML SYRINGE IVP ONE (22:49)
[2021-03-23 23:40] LABS: Hematocrit 35.4 % (37.5-50.1); Hemoglobin 11.8 g/dL (12.9-16.9); Mean Corpuscular HGB Conc 33.3 g/dL (31.6-35.5); Mean Corpuscular Hemoglobin 31.5 pg (28.0-33.3); Mean Corpuscular Volume 94.4 fL (83.0-100.0); Mean Platelet Volume 9.9 fL (9.4-12.4); Platelet Count 306 K/mcL (140-400); Red Blood Count 3.75 M/mcL (4.19-5.50); Red Cell Distribution Width 12.3 % (11.5-14.5); White Blood Count 8.1 K/mcL (4.3-11.1)
[2021-03-23 23:47] LABS: INR 1.1; Prothrombin Time 12.4 Seconds (9.4-12.1)
[2021-03-23 23:50] LABS: Activated Partial Thrombo Time 27.7 Seconds (26.0-36.0)
[2021-03-23 23:59] LABS: BUN/Creatinine Ratio 28 (6-26); Blood Urea Nitrogen 38 mg/dL (8-23); Calcium 9.8 mg/dL (8.6-10.3); Carbon Dioxide 28 mEq/L (23-29); Chloride 94 mEq/L (98-107); Glucose 353 mg/dL (70-105); Osmolality,Calculated 299 (280-300); Sodium 133 mEq/L (136-145); eGFR For African Americans > 60 (> 60); eGFR For Non-African Americans 53 (> 60)
[2021-03-24] MEDS ORDERED: Ondansetron 4 MG/2 ML VIAL IVP PRN (02:14)
[2021-03-24] MEDS ORDERED: Naloxone 0.4 MG/ML INJ IVP PRN (02:14)
[2021-03-24] MEDS ORDERED: Acetaminophen 325 MG TABLET PO PRN (02:14)
[2021-03-24] MEDS ORDERED: Dextrose Gel 15 GM/37.5 ML TUBE PO PRN ×2 (02:20)
[2021-03-24] MEDS ORDERED: D5% in Water 1,000 ML IVC PRN (02:20)
[2021-03-24] MEDS ORDERED: *HR* Dextrose 50 % in Water (Syg) 50 ML SYRINGE IVP PRN (02:20)
[2021-03-24 03:05] LABS: Bilirubin,Urine Negative (Negative); Blood,Urine Negative (Negative); Clarity,Urine Clear (Clear); Color,Urine Light-Yellow (Yellow); Glucose,Urine (UA) >=1000 mg/dL (Normal); Ketones,Urine 20 mg/dL (Negative); Leukocyte Esterase,Urine Negative (Negative); Nitrite,Urine Negative (Negative); Protein,Urine Negative (Neg-Trace); Specific Gravity,Urine > 1.030 (1.010-1.025); Squamous Epithelial Cell,Urine Few per hpf (None-Few); Urobilinogen,Urine Normal (Normal); WBC,Urine 0-3 per hpf (0-3)
[2021-03-24] MEDS: Insulin LISPRO 300 UNITS/3 ML VIAL SUBQ SCH ×6 (03:06→19:42)
[2021-03-24 04:32] LABS: Basophils # 0.1 K/mcL (0.0-0.2); Basophils % 0.9 %; Eosinophils # 0.3 K/mcL (0.0-0.6); Eosinophils % 3.2 %; Hematocrit 33.6 % (37.5-50.1); Hemoglobin 11.2 g/dL (12.9-16.9); Immature Granulocytes % 0.6 % (0-4); Lymphocytes # 0.9 K/mcL (0.6-4.6); Lymphocytes % 10.9 %; Mean Corpuscular HGB Conc 33.3 g/dL (31.6-35.5); Mean Corpuscular Hemoglobin 31.4 pg (28.0-33.3); Mean Corpuscular Volume 94.1 fL (83.0-100.0); Mean Platelet Volume 9.6 fL (9.4-12.4); Monocytes # 0.6 K/mcL (0.0-1.3); Monocytes % 7.7 %; Platelet Count 298 K/mcL (140-400); Red Blood Count 3.57 M/mcL (4.19-5.50); Red Cell Distribution Width 12.3 % (11.5-14.5); Segmented Neutrophils % 76.7 %; White Blood Count 7.8 K/mcL (4.3-11.1)
[2021-03-24 04:52] LABS: BUN/Creatinine Ratio 28 (6-26); Blood Urea Nitrogen 37 mg/dL (8-23); Calcium 9.6 mg/dL (8.6-10.3); Carbon Dioxide 25 mEq/L (23-29); Chloride 95 mEq/L (98-107); Glucose 351 mg/dL (70-105); Magnesium 1.9 mg/dL (1.6-2.6); Osmolality,Calculated 297 (280-300); Potassium 4.9 mEq/L (3.5-5.1); Sodium 132 mEq/L (136-145); eGFR For African Americans > 60 (> 60); eGFR For Non-African Americans 55 (> 60)
[2021-03-24 05:13] LABS: Thyroid Stimulating Hormone 2.688 mcIU/mL (0.340-5.600)
[2021-03-24] MEDS: Aspirin Enteric Coated 81 MG Tablet PO SCH (09:49)
[2021-03-24] MEDS: Metoprolol XL (24 HR) Succ 50 MG TAB.ER.24H PO SCH (09:49)
[2021-03-24] MEDS: 0.9 % Sodium Chloride 1,000 ML IVC SCH ×2 (09:50→23:33)
[2021-03-24] MEDS: lisinopriL 10 MG TABLET PO SCH (09:50)
[2021-03-24] MEDS: Pregabalin 75 MG CAPSULE PO SCH ×2 (09:50→19:40)
[2021-03-24] MEDS: *HR* Insulin Regular U-500 500 UNIT/ML SUBQ SCH ×2 (09:54→11:54)
[2021-03-24 10:31] LABS: Basophils % 0.5 %; Eosinophils % 0.1 %; Hematocrit 36.3 % (37.5-50.1); Hemoglobin 12.4 g/dL (12.9-16.9); Immature Granulocytes % 0.5 % (0-4); Lymphocytes # 0.7 K/mcL (0.6-4.6); Lymphocytes % 8.2 %; Mean Corpuscular HGB Conc 34.2 g/dL (31.6-35.5); Mean Corpuscular Volume 93.6 fL (83.0-100.0); Mean Platelet Volume 9.7 fL (9.4-12.4); Monocytes # 0.2 K/mcL (0.0-1.3); Monocytes % 2.8 %; Neutrophils # 7.3 K/mcL (1.6-8.9); Platelet Count 342 K/mcL (140-400); Red Blood Count 3.88 M/mcL (4.19-5.50); Red Cell Distribution Width 12.3 % (11.5-14.5); Segmented Neutrophils % 87.9 %; White Blood Count 8.3 K/mcL (4.3-11.1)
[2021-03-24] MEDS: Morphine Sulfate 2 MG/ML SYRINGE IVP PRN ×3 (11:54→23:44)
[2021-03-24 14:48] LABS: C-Reactive Protein 139 mg/L (Less than 10)
[2021-03-24] MEDS ORDERED: *HR* Insulin Regular U-500 500 UNIT/ML SUBQ SCH (17:00)
[2021-03-24 20:36] LABS: Basophils % 0.3 %; Eosinophils % 0.3 %; Hematocrit 35.2 % (37.5-50.1); Hemoglobin 11.8 g/dL (12.9-16.9); Immature Granulocytes % 0.6 % (0-4); Lymphocytes # 1.2 K/mcL (0.6-4.6); Lymphocytes % 13.4 %; Mean Corpuscular HGB Conc 33.5 g/dL (31.6-35.5); Mean Corpuscular Hemoglobin 31.3 pg (28.0-33.3); Mean Corpuscular Volume 93.4 fL (83.0-100.0); Mean Platelet Volume 9.6 fL (9.4-12.4); Monocytes # 0.8 K/mcL (0.0-1.3); Monocytes % 8.4 %; Platelet Count 342 K/mcL (140-400); Red Blood Count 3.77 M/mcL (4.19-5.50); Red Cell Distribution Width 12.1 % (11.5-14.5)
[2021-03-25 05:09] LABS: Basophils % 0.3 %; Eosinophils # 0.1 K/mcL (0.0-0.6); Hematocrit 32.8 % (37.5-50.1); Hemoglobin 11.3 g/dL (12.9-16.9); Immature Granulocytes % 0.5 % (0-4); Lymphocytes # 1.4 K/mcL (0.6-4.6); Lymphocytes % 14.3 %; Mean Corpuscular HGB Conc 34.5 g/dL (31.6-35.5); Mean Corpuscular Hemoglobin 31.7 pg (28.0-33.3); Mean Corpuscular Volume 92.1 fL (83.0-100.0); Mean Platelet Volume 10.2 fL (9.4-12.4); Monocytes # 0.9 K/mcL (0.0-1.3); Monocytes % 9.8 %; Neutrophils # 7.1 K/mcL (1.6-8.9); Platelet Count 311 K/mcL (140-400); Red Blood Count 3.56 M/mcL (4.19-5.50); Red Cell Distribution Width 12.1 % (11.5-14.5); Segmented Neutrophils % 74.1 %; White Blood Count 9.6 K/mcL (4.3-11.1)
[2021-03-25 05:24] LABS: BUN/Creatinine Ratio 27 (6-26); Blood Urea Nitrogen 38 mg/dL (8-23); Calcium 9.7 mg/dL (8.6-10.3); Carbon Dioxide 25 mEq/L (23-29); Chloride 97 mEq/L (98-107); Glucose 480 mg/dL (70-105); Osmolality,Calculated 302 (280-300); Potassium 4.5 mEq/L (3.5-5.1); Sodium 131 mEq/L (136-145); eGFR For African Americans > 60 (> 60); eGFR For Non-African Americans 51 (> 60)
[2021-03-25] MEDS: Morphine Sulfate 2 MG/ML SYRINGE IVP PRN (05:35)
[2021-03-25] MEDS ORDERED: *HR* Insulin Regular U-500 500 UNIT/ML SUBQ SCH ×2 (08:00→17:00)
[2021-03-25] MEDS: Insulin LISPRO 300 UNITS/3 ML VIAL SUBQ SCH ×3 (09:14→21:39)
[2021-03-25] MEDS: Pregabalin 75 MG CAPSULE PO SCH (09:16)
[2021-03-25] MEDS: Metoprolol XL (24 HR) Succ 50 MG TAB.ER.24H PO SCH (09:16)
[2021-03-25] MEDS: lisinopriL 10 MG TABLET PO SCH (09:16)
[2021-03-25] MEDS: Aspirin Enteric Coated 81 MG Tablet PO SCH (09:17)
[2021-03-25] MEDS ORDERED: Lidocaine -MPF 2% 5 ML VIAL ONE (09:42)
[2021-03-25] MEDS ORDERED: *HR* Rocuronium Bromide 50 MG/5 ML VIAL ONE ×2 (09:42→11:10)
[2021-03-25] MEDS ORDERED: *HR* Propofol 200 MG/20 ML VIAL IVP ONE (09:42)
[2021-03-25] MEDS ORDERED: *HR* Midazolam HCl 2 MG/2 ML VIAL ONE (09:42)
[2021-03-25] MEDS ORDERED: *HR* FentaNYL (PF) 100 MCG/2 ML VIAL ONE (09:42)
[2021-03-25] MEDS ORDERED: Ondansetron 4 MG/2 ML VIAL ONE (09:42)
[2021-03-25] MEDS ORDERED: Ondansetron 4 MG/2 ML VIAL IVP PRN ×2 (09:49→13:57)
[2021-03-25] MEDS ORDERED: *HR* OxyCODONE Immed Rel 5 MG TABLET PO PRN (09:49)
[2021-03-25] MEDS ORDERED: *HR* HYDROmorphone PF 0.5 MG/0.5 ML SYRINGE IVP PRN (09:49)
[2021-03-25] MEDS ORDERED: Insulin Human Regular 10 UNIT in 0.9 % Sodium Chloride 10 ML IV ONE ×2 (10:00→10:30)
[2021-03-25] MEDS ORDERED: Ringers Solution, Lactated 1,000 ML IVC SCH (10:00)
[2021-03-25] MEDS ORDERED: CeFAZolin Syr 3,000MG/30 ML 3,000 MG/30 ML SYRINGE IVPB ONE (10:01)
[2021-03-25] MEDS ORDERED: Vancomycin 1,000 MG VIAL ONE (10:05)
[2021-03-25] MEDS ORDERED: Insulin Human Regular 100 UNIT in 0.9 % Sodium Chloride 100 ML IVC SCH (10:15)
[2021-03-25] MEDS ORDERED: Insulin Human Regular 100 UNIT in 0.9 % Sodium Chloride 99 ML IVC SCH (10:30)
[2021-03-25] MEDS ORDERED: *HR* HYDROMORPHONE 2 MG/ML VIAL ONE (12:13)
[2021-03-25] MEDS ORDERED: Nitroglycerin 0.4 MG TAB.SUBL SL PRN (13:57)
[2021-03-25] MEDS ORDERED: Naloxone 0.4 MG/ML INJ IVP PRN (13:57)
[2021-03-25] MEDS ORDERED: Acetaminophen 325 MG TABLET PO PRN (13:57)
[2021-03-25] MEDS: Ringers Solution, Lactated 1,000 ML IVC SCH (16:00)
[2021-03-25] MEDS ORDERED: CeFAZolin Syr 3,000MG/30 ML 3,000 MG/30 ML SYRINGE IVPB SCH (16:00)
[2021-03-25] MEDS ORDERED: Polymyxin B Sulfate 500,000 UNIT, Sodium Chloride IRRigation 1,000 ML IR ONE (17:00)
[2021-03-25] MEDS ORDERED: Insulin LISPRO 300 UNITS/3 ML VIAL SUBQ SCH ×3 (18:00→21:00)
[2021-03-25] MEDS: ceFAZolin 3,000 MG in 0.9 % Sodium Chloride 100 ML IVPB SCH (18:16)
[2021-03-25] MEDS: *HR* OxyCODONE Immed Rel 5 MG TABLET PO PRN (23:51)
[2021-03-26] MEDS: ceFAZolin 3,000 MG in 0.9 % Sodium Chloride 100 ML IVPB SCH (01:42)
[2021-03-26] MEDS: Fenofibrate 54 MG TABLET PO SCH (08:00)
[2021-03-26] MEDS: *HR* Insulin Regular U-500 500 UNIT/ML SUBQ SCH ×2 (08:04→12:32)
[2021-03-26] MEDS: Insulin LISPRO 300 UNITS/3 ML VIAL SUBQ SCH ×4 (08:05→20:55)
[2021-03-26] MEDS: Niacin (24 HR) 500 MG TAB.ER.24H PO SCH (08:15)
[2021-03-26] MEDS: Ringers Solution, Lactated 1,000 ML IVC SCH (10:04)
[2021-03-26] MEDS: *HR* OxyCODONE Immed Rel 5 MG TABLET PO PRN ×3 (10:06→23:50)
[2021-03-26] MEDS: *HR* HYDROcodone/Acet 5/325 mg TABLET PO PRN ×2 (12:30→22:54)
[2021-03-26] MEDS ORDERED: *HR* Insulin Regular U-500 500 UNIT/ML SUBQ SCH (17:00)
[2021-03-26 18:14] LABS: Basophils # 0.1 K/mcL (0.0-0.2); Basophils % 0.8 %; Eosinophils # 0.2 K/mcL (0.0-0.6); Eosinophils % 1.6 %; Hematocrit 32.6 % (37.5-50.1); Hemoglobin 10.8 g/dL (12.9-16.9); Immature Granulocytes % 0.8 % (0-4); Lymphocytes # 1.8 K/mcL (0.6-4.6); Lymphocytes % 19.3 %; Mean Corpuscular HGB Conc 33.1 g/dL (31.6-35.5); Mean Corpuscular Hemoglobin 31.1 pg (28.0-33.3); Mean Corpuscular Volume 93.9 fL (83.0-100.0); Mean Platelet Volume 10.1 fL (9.4-12.4); Monocytes # 0.8 K/mcL (0.0-1.3); Monocytes % 8.5 %; Neutrophils # 6.4 K/mcL (1.6-8.9); Platelet Count 304 K/mcL (140-400); Red Blood Count 3.47 M/mcL (4.19-5.50); Red Cell Distribution Width 12.4 % (11.5-14.5); White Blood Count 9.2 K/mcL (4.3-11.1)
[2021-03-27 04:59] LABS: Hematocrit 33.2 % (37.5-50.1); Hemoglobin 11.2 g/dL (12.9-16.9); Mean Corpuscular HGB Conc 33.7 g/dL (31.6-35.5); Mean Corpuscular Hemoglobin 31.8 pg (28.0-33.3); Mean Corpuscular Volume 94.3 fL (83.0-100.0); Mean Platelet Volume 9.8 fL (9.4-12.4); Platelet Count 316 K/mcL (140-400); Red Blood Count 3.52 M/mcL (4.19-5.50); Red Cell Distribution Width 12.4 % (11.5-14.5); White Blood Count 10.5 K/mcL (4.3-11.1)
[2021-03-27 05:23] LABS: BUN/Creatinine Ratio 27 (6-26); Blood Urea Nitrogen 29 mg/dL (8-23); Calcium 9.8 mg/dL (8.6-10.3); Carbon Dioxide 28 mEq/L (23-29); Chloride 103 mEq/L (98-107); Glucose 38 mg/dL (70-105); Osmolality,Calculated 292 (280-300); Potassium 3.8 mEq/L (3.5-5.1); Sodium 140 mEq/L (136-145); eGFR For African Americans > 60 (> 60); eGFR For Non-African Americans > 60 (> 60)
[2021-03-27] MEDS ORDERED: *HR* Dextrose 50 % in Water (Syg) 50 ML SYRINGE IVP PRN (05:25)
[2021-03-27] MEDS ORDERED: D5% in Water 1,000 ML IVC PRN (05:25)
[2021-03-27] MEDS ORDERED: Dextrose Gel 15 GM/37.5 ML TUBE PO PRN ×2 (05:25)
[2021-03-27] MEDS ORDERED: Dextrose Gel 15 GM/37.5 ML TUBE PO ONE (05:28)
[2021-03-27] MEDS: *HR* OxyCODONE Immed Rel 5 MG TABLET PO PRN ×3 (06:49→20:54)
[2021-03-27] MEDS: Insulin LISPRO 300 UNITS/3 ML VIAL SUBQ SCH ×4 (07:37→21:01)
[2021-03-27] MEDS: *HR* HYDROcodone/Acet 5/325 mg TABLET PO PRN (07:54)
[2021-03-27] MEDS: Niacin (24 HR) 500 MG TAB.ER.24H PO SCH (07:55)
[2021-03-27] MEDS: Fenofibrate 54 MG TABLET PO SCH (07:55)
[2021-03-27] MEDS ORDERED: *HR* Insulin Regular U-500 500 UNIT/ML SUBQ SCH (08:00)
[2021-03-27] MEDS ORDERED: *HR* Insulin Regular U-500 500 UNIT/ML SUBQ ONE (08:15)
[2021-03-27] MEDS: *HR* Heparin 5,000 UNIT/ML VIAL SQ SCH (18:14)
[2021-03-27] MEDS: *HR* HYDROmorphone (PF) 1 MG/ML SYRINGE IVP PRN (23:20)
[2021-03-28] MEDS: *HR* HYDROmorphone (PF) 1 MG/ML SYRINGE IVP PRN (04:18)
[2021-03-28] MEDS: *HR* Heparin 5,000 UNIT/ML VIAL SQ SCH (04:19)
[2021-03-28] MEDS: *HR* OxyCODONE Immed Rel 5 MG TABLET PO PRN ×3 (06:19→15:28)
[2021-03-28 07:19] LABS: Basophils # 0.1 K/mcL (0.0-0.2); Eosinophils # 0.2 K/mcL (0.0-0.6); Eosinophils % 2.6 %; Hemoglobin 11.6 g/dL (12.9-16.9); Immature Granulocytes % 0.9 % (0-4); Lymphocytes # 1.7 K/mcL (0.6-4.6); Lymphocytes % 20.9 %; Mean Corpuscular HGB Conc 33.1 g/dL (31.6-35.5); Mean Corpuscular Hemoglobin 31.2 pg (28.0-33.3); Mean Corpuscular Volume 94.1 fL (83.0-100.0); Mean Platelet Volume 9.9 fL (9.4-12.4); Monocytes # 0.7 K/mcL (0.0-1.3); Monocytes % 8.4 %; Neutrophils # 5.4 K/mcL (1.6-8.9); Platelet Count 309 K/mcL (140-400); Red Blood Count 3.72 M/mcL (4.19-5.50); Red Cell Distribution Width 12.3 % (11.5-14.5); Segmented Neutrophils % 66.2 %; White Blood Count 8.1 K/mcL (4.3-11.1)
[2021-03-28] MEDS ORDERED: *HR* Insulin Regular U-500 500 UNIT/ML SUBQ SCH ×2 (08:00→18:00)
[2021-03-28] MEDS: Niacin (24 HR) 500 MG TAB.ER.24H PO SCH (08:09)
[2021-03-28] MEDS: Fenofibrate 54 MG TABLET PO SCH (08:09)
[2021-03-28 09:09] LABS: Alanine Aminotransferase 14 Units/L (7-52); Albumin 3.6 g/dL (3.5-5.7); Albumin/Globulin Ratio 1.2 (1.1-2.2); Alkaline Phosphatase 93 Units/L (34-104); Aspartate Amino Transferase 19 Units/L (13-39); BUN/Creatinine Ratio 25 (6-26); Bilirubin,Total 0.5 mg/dL (0.3-1.0); Blood Urea Nitrogen 29 mg/dL (8-23); Calcium 10.2 mg/dL (8.6-10.3); Carbon Dioxide 26 mEq/L (23-29); Chloride 97 mEq/L (98-107); Glucose 376 mg/dL (70-105); Osmolality,Calculated 297 (280-300); Potassium 4.8 mEq/L (3.5-5.1); Sodium 133 mEq/L (136-145); Total Protein 6.6 g/dL (6.4-8.9); eGFR For African Americans > 60 (> 60); eGFR For Non-African Americans > 60 (> 60)
[2021-03-28 10:03] VITALS: BP 131/79; PULSE 86; TEMP 97.7; O2SAT 94
[2021-03-28] MEDS: Insulin LISPRO 300 UNITS/3 ML VIAL SUBQ SCH ×2 (10:31→12:57)
[2021-03-28 11:59] LABS: Adenovirus Not Detected (Not Detect); Bordetella Pertussis Not Detected (Not Detect); Chlamydophila pneumoniae Not Detected (Not Detect); Coronavirus 229E Not Detected (Not Detect); Coronavirus HKU1 Not Detected (Not Detect); Coronavirus NL63 Not Detected (Not Detect); Coronavirus OC43 Not Detected (Not Detect); Human Metapneumovirus Not Detected (Not Detect); Human Rhinovirus/Enterovirus Not Detected (Not Detect); Influenza A Subtype 2009 H1 Not Detected (Not Detect); Influenza B Not Detected (Not Detect); Mycoplasma pneumoniae Not Detected (Not Detect); Parainfluenza Virus 1 Not Detected (Not Detect); Parainfluenza Virus 2 Not Detected (Not Detect); Parainfluenza Virus 3 Not Detected (Not Detect); Parainfluenza Virus 4 Not Detected (Not Detect); Respiratory Syncytial Virus Not Detected (Not Detect); SARS-CoV-2 Not Detected (Not Detect)
== END 2021-03-28 15:57 | DRG 30 ==
LOC: 4WAOSI 21:51 → EMEROOARM 21:51 → 4WAOSI 03-24 02:27 → SUATTDRO 03-24 15:58
PROVIDERS: ADMIT Internal Medicine; ATTEND Internal Medicine

== ENCOUNTER 2021-07-14 08:33 | Inpatient (IN) ==
[2021-07-14] MEDS ORDERED: *HR* HYDROmorphone (PF) 1 MG/ML SYRINGE IVP ONE (08:53)
[2021-07-14 09:29] LABS: Basophils # 0.1 K/mcL (0.0-0.2); Basophils % 1.2 %; Eosinophils # 0.1 K/mcL (0.0-0.6); Eosinophils % 2.2 %; Hematocrit 37.5 % (37.5-50.1); Hemoglobin 12.8 g/dL (12.9-16.9); Immature Granulocytes % 0.2 % (0-4); Lymphocytes # 2.6 K/mcL (0.6-4.6); Mean Corpuscular HGB Conc 34.1 g/dL (31.6-35.5); Mean Corpuscular Hemoglobin 30.3 pg (28.0-33.3); Mean Corpuscular Volume 88.9 fL (83.0-100.0); Mean Platelet Volume 9.8 fL (9.4-12.4); Monocytes # 0.5 K/mcL (0.0-1.3); Monocytes % 7.8 %; Neutrophils # 3.1 K/mcL (1.6-8.9); Platelet Count 242 K/mcL (140-400); Red Blood Count 4.22 M/mcL (4.19-5.50); Red Cell Distribution Width 14.3 % (11.5-14.5); Segmented Neutrophils % 47.6 %; White Blood Count 6.4 K/mcL (4.3-11.1)
[2021-07-14 09:46] LABS: BUN/Creatinine Ratio 18 (6-26); Blood Urea Nitrogen 22 mg/dL (8-23); Calcium 9.8 mg/dL (8.6-10.3); Carbon Dioxide 28 mEq/L (23-29); Chloride 104 mEq/L (98-107); Glucose 145 mg/dL (70-105); Osmolality,Calculated 294 (280-300); Potassium 3.5 mEq/L (3.5-5.1); Sodium 139 mEq/L (136-145); eGFR For African Americans > 60 (> 60); eGFR For Non-African Americans 59 (> 60)
[2021-07-14] MEDS ORDERED: Acetaminophen 325 MG TABLET PO PRN (10:27)
[2021-07-14] MEDS ORDERED: Melatonin 3 MG TABLET PO PRN (10:27)
[2021-07-14] MEDS ORDERED: Naloxone 0.4 MG/ML INJ IVP PRN (10:27)
[2021-07-14] MEDS ORDERED: *HR* OxyCODONE Immed Rel 5 MG TABLET PO PRN (10:27)
[2021-07-14] MEDS ORDERED: Mag Hydrox/Al Hydrox/Simeth 30 ML UDC PO PRN (10:27)
[2021-07-14] MEDS ORDERED: Ondansetron ODT 4 MG TAB.RAPDIS SL PRN (10:27)
[2021-07-14] MEDS ORDERED: *HR* Dextrose 50 % in Water (Syg) 50 ML SYRINGE IVP PRN (10:59)
[2021-07-14] MEDS ORDERED: D5% in Water 1,000 ML IVC PRN (10:59)
[2021-07-14] MEDS ORDERED: Dextrose Gel 15 GM/37.5 ML TUBE PO PRN ×2 (10:59)
[2021-07-14] MEDS: Insulin LISPRO 300 UNITS/3 ML VIAL SUBQ SCH ×2 (11:28→20:52)
[2021-07-14] MEDS ORDERED: Sennosides/Docusate Sodium TABLET PO PRN (14:57)
[2021-07-14] MEDS ORDERED: Nitroglycerin 0.4 MG TAB.SUBL SL PRN (14:57)
[2021-07-14] MEDS ORDERED: Insulin LISPRO 300 UNITS/3 ML VIAL SUBQ SCH (21:00)
[2021-07-14] MEDS: Pregabalin 75 MG CAPSULE PO SCH (21:42)
[2021-07-15 05:13] LABS: Hematocrit 37.1 % (37.5-50.1); Hemoglobin 12.7 g/dL (12.9-16.9); Mean Corpuscular HGB Conc 34.2 g/dL (31.6-35.5); Mean Corpuscular Hemoglobin 30.5 pg (28.0-33.3); Mean Corpuscular Volume 89.2 fL (83.0-100.0); Mean Platelet Volume 10.1 fL (9.4-12.4); Platelet Count 222 K/mcL (140-400); Red Blood Count 4.16 M/mcL (4.19-5.50); White Blood Count 5.9 K/mcL (4.3-11.1)
[2021-07-15 05:18] LABS: Prothrombin Time 10.8 Seconds (9.4-12.1)
[2021-07-15 05:21] LABS: Activated Partial Thrombo Time 30.1 Seconds (26.0-36.0)
[2021-07-15 05:45] LABS: BUN/Creatinine Ratio 21 (6-26); Blood Urea Nitrogen 25 mg/dL (8-23); Calcium 9.8 mg/dL (8.6-10.3); Carbon Dioxide 29 mEq/L (23-29); Chloride 102 mEq/L (98-107); Glucose 258 mg/dL (70-105); Osmolality,Calculated 299 (280-300); Potassium 4.4 mEq/L (3.5-5.1); Sodium 138 mEq/L (136-145); eGFR For African Americans > 60 (> 60); eGFR For Non-African Americans > 60 (> 60)
[2021-07-15] MEDS ORDERED: Polymyxin B Sulfate 500,000 UNIT, Sodium Chloride IRRigation 1,000 ML IR ONE (06:00)
[2021-07-15] MEDS: Insulin LISPRO 300 UNITS/3 ML VIAL SUBQ SCH ×3 (08:31→17:47)
[2021-07-15] MEDS: Pregabalin 75 MG CAPSULE PO SCH (08:32)
[2021-07-15] MEDS ORDERED: lisinopriL 10 MG TABLET PO SCH (09:00)
[2021-07-15] MEDS ORDERED: Lactulose Oral Soln 20 GM/30 ML UDC PO SCH (09:00)
[2021-07-15] MEDS ORDERED: Niacin (24 HR) 500 MG TAB.ER.24H PO SCH (09:00)
[2021-07-15] MEDS ORDERED: Metoprolol XL (24 HR) Succ 50 MG TAB.ER.24H PO SCH (09:00)
[2021-07-15] MEDS ORDERED: tiZANidine 4 MG TABLET PO ONE (09:11)
[2021-07-15] MEDS ORDERED: Famotidine 20 MG/2 ML VIAL IVP ONE (09:11)
[2021-07-15] MEDS ORDERED: CeFAZolin Syr 3,000MG/30 ML 3,000 MG/30 ML SYRINGE IVPB ONE (09:19)
[2021-07-15] MEDS ORDERED: Ringers Solution, Lactated 1,000 ML IVC SCH (09:30)
[2021-07-15] MEDS ORDERED: *HR* Propofol 200 MG/20 ML VIAL IVP ONE (09:33)
[2021-07-15] MEDS ORDERED: *HR* FentaNYL (PF) 100 MCG/2 ML VIAL ONE (09:33)
[2021-07-15] MEDS ORDERED: *HR* Succinylcholine 200 MG/10 ML VIAL IVP ONE (09:37)
[2021-07-15] MEDS ORDERED: *HR* Rocuronium Bromide 50 MG/5 ML VIAL ONE ×2 (09:37→10:40)
[2021-07-15] MEDS ORDERED: Lidocaine HCL 4 ML Topical Solution (Laryng-O-Jet Kit Sterile Pak) TP ONE (09:37)
[2021-07-15] MEDS ORDERED: Ondansetron 4 MG/2 ML VIAL ONE (09:37)
[2021-07-15] MEDS ORDERED: Lidocaine -MPF 2% 5 ML VIAL ONE (09:37)
[2021-07-15] MEDS ORDERED: Vancomycin 1,000 MG VIAL ONE (09:43)
[2021-07-15] MEDS ORDERED: *HR* HYDROMORPHONE 2 MG/ML VIAL ONE (09:45)
[2021-07-15] MEDS ORDERED: Acetaminophen IV 1,000 MG/100 ML BAG IVPB ONE (10:00)
[2021-07-15] MEDS ORDERED: EPHEDrine 50 MG/ML VIAL ONE (11:03)
[2021-07-15] MEDS ORDERED: Ondansetron 4 MG/2 ML VIAL IVP PRN ×2 (13:13→15:10)
[2021-07-15] MEDS ORDERED: Insulin Regular, Human 100 UNIT/ML ONE (13:29)
[2021-07-15] MEDS ORDERED: Insulin Human Regular 15 UNIT in 0.9 % Sodium Chloride 10 ML IV ONE (13:45)
[2021-07-15] MEDS ORDERED: Insulin Regular, Human 100 UNIT/ML SUBQ ONE (14:00)
[2021-07-15] MEDS: *HR* HYDROmorphone PF 0.5 MG/0.5 ML SYRINGE IVP PRN ×2 (14:20→14:33)
[2021-07-15] MEDS ORDERED: *HR* HYDROcodone/Acet 5/325 mg TABLET PO PRN (15:10)
[2021-07-15] MEDS ORDERED: *HR* OxyCODONE Immed Rel 5 MG TABLET PO PRN (15:10)
[2021-07-15] MEDS ORDERED: Naloxone 0.4 MG/ML INJ IVP PRN (15:10)
[2021-07-15] MEDS ORDERED: Acetaminophen 325 MG TABLET PO PRN (15:10)
[2021-07-15] MEDS ORDERED: CeFAZolin Syr 3,000MG/30 ML 3,000 MG/30 ML SYRINGE IVPB SCH (16:00)
[2021-07-15] MEDS: Ringers Solution, Lactated 1,000 ML IVC SCH (16:21)
[2021-07-15] MEDS: ceFAZolin 3,000 MG in 0.9 % Sodium Chloride 100 ML IVPB SCH (16:22)
[2021-07-15] MEDS ORDERED: Insulin LISPRO 300 UNITS/3 ML VIAL SUBQ SCH (21:00)
[2021-07-15 23:11] VITALS: O2SAT 95
[2021-07-16] MEDS: ceFAZolin 3,000 MG in 0.9 % Sodium Chloride 100 ML IVPB SCH (00:14)
[2021-07-16] MEDS: Ringers Solution, Lactated 1,000 ML IVC SCH (03:53)
[2021-07-16 07:06] VITALS: BP 142/72; PULSE 60; TEMP 98.1
[2021-07-16] MEDS ORDERED: Metoprolol XL (24 HR) Succ 50 MG TAB.ER.24H PO SCH (09:00)
[2021-07-16] MEDS ORDERED: Fenofibrate 54 MG TABLET PO SCH (09:00)
[2021-07-16] MEDS ORDERED: Insulin DETEMIR 100 UNIT/ML X5UNITS SUBQ SCH (09:00)
[2021-07-16] MEDS: Insulin LISPRO 300 UNITS/3 ML VIAL SUBQ SCH ×2 (09:26→11:23)
[2021-07-16 10:33] LABS: Basophils % 0.2 %; Hematocrit 34.6 % (37.5-50.1); Hemoglobin 11.9 g/dL (12.9-16.9); Immature Granulocytes % 0.4 % (0-4); Lymphocytes # 1.4 K/mcL (0.6-4.6); Lymphocytes % 13.5 %; Mean Corpuscular HGB Conc 34.4 g/dL (31.6-35.5); Mean Corpuscular Hemoglobin 30.1 pg (28.0-33.3); Mean Corpuscular Volume 87.6 fL (83.0-100.0); Mean Platelet Volume 10.1 fL (9.4-12.4); Monocytes # 0.6 K/mcL (0.0-1.3); Monocytes % 5.7 %; Neutrophils # 8.1 K/mcL (1.6-8.9); Platelet Count 209 K/mcL (140-400); Red Blood Count 3.95 M/mcL (4.19-5.50); Red Cell Distribution Width 13.5 % (11.5-14.5); Segmented Neutrophils % 80.2 %; White Blood Count 10.1 K/mcL (4.3-11.1)
[2021-07-16 10:50] LABS: Magnesium 1.6 mg/dL (1.6-2.6); Phosphorous 2.6 mg/dL (2.7-4.5)
[2021-07-16 11:04] LABS: BUN/Creatinine Ratio 26 (6-26); Blood Urea Nitrogen 36 mg/dL (8-23); Calcium 9.7 mg/dL (8.6-10.3); Carbon Dioxide 23 mEq/L (23-29); Chloride 97 mEq/L (98-107); Glucose 536 mg/dL (70-105); Osmolality,Calculated 307 (280-300); Potassium 3.8 mEq/L (3.5-5.1); Sodium 132 mEq/L (136-145); eGFR For African Americans > 60 (> 60); eGFR For Non-African Americans 50 (> 60)
== END 2021-07-16 12:39 | disposition home health service (06) ==
LOC: SUATTDRO → EMEROOARM 08:33 → 4WAOSI 08:33 → SUATTDRO 10:20 → 4WAOSI 11:21
PROVIDERS: ADMIT Family Medicine; ATTEND Internal Medicine